=== PATIENT | female | born 1980 | race Caucasian/White ===

== ENCOUNTER 2022-06-01 07:17 | Outpatient (CLI) | payer OTHER, SELFPAY ==
--- NOTE | 2022-06-01 07:15 | CRLHL7_ITS ---
For Patients: As a result of the Century Cures Act, medical imaging exams and procedure reports are released immediately into your electronic medical record. You may view this report before your referring provider. If you have questions, please contact your health care provider. Indication: Question spigelian hernia Technique: Grayscale ultrasound of the abdominal wall performed. Comparison: CT 04/17/2022 Findings: Umbilical hernia again noted measuring 8 millimeters at the base. No evidence of spigelian hernia. Impression: No evidence of spigelian hernia. Dictated by Erich David MD @ 06/01/2022 9:38:47 AM (Electronically Signed)
== END 2022-06-01 07:18 | disposition home or self-care (01) ==
LOC: US 07:18
PROVIDERS: PCP Internal Medicine; Visit Provider Surgery
DX: R10.9 Unspecified abdominal pain (principal)
CPT/HCPCS: 76705

== ENCOUNTER 2022-06-27 15:22 | Outpatient (CLI) | payer OTHER, SELFPAY | END 2022-06-27 15:23 | disposition home or self-care (01) | LOC: LKVREF 15:22 | PROVIDERS: PCP Internal Medicine; Visit Provider Nurse Practitioner Family | DX: M79.674 Pain in right toe(s) (principal); L60.0 Ingrowing nail | CPT/HCPCS: 87070; 87205 ==

== ENCOUNTER 2022-07-11 22:34 | Emergency (ER) | payer OTHER, SELFPAY ==
[2022-07-11 22:43] VITALS: BP 145/78; PULSE 68; RESP 16; TEMP 36.3; O2SAT 98; BMI 51.9
--- NOTE | 2022-07-11 23:02 | CRLHL7_ITS ---
For Patients: As a result of the Century Cures Act, medical imaging exams and procedure reports are released immediately into your electronic medical record. You may view this report before your referring provider. If you have questions, please contact your health care provider. INDICATION: Chest tightness COMPARISON: 07/28/2021 FINDINGS: PA and lateral views of the chest were obtained. The lungs remain clear. No focal or diffuse infiltrates are present. The heart remains normal in size. The mediastinum is normal in appearance. The osseous structures are normal in appearance for the patient`s age. IMPRESSION: Normal chest two views. Dictated by Reagan Moerno MD @ 07/11/2022 11:35:19 PM (Electronically Signed)
[2022-07-11 23:23] LABS: Basophils Absolute Auto 0.02 K/uL (0.00-0.30); Basophils Percent Auto 0.3 % (0.0-3.0); Eosinophils Absolute Auto 0.11 K/uL (0.00-0.50); Eosinophils Percent Auto 1.4 % (0.0-7.0); Hematocrit 34.6 % (33.0-51.0); Hemoglobin* 10.8 gm/dL (12.0-16.0); Immature Granulocytes Abs Auto 0.02 K/uL (0.00-0.30); Lymphocytes Absolute Auto 2.07 K/uL (0.90-2.90); Lymphocytes Percent Auto 26.5 % (20-44); Mean Corpuscular HGB Conc 31 gm/dL (32-36); Mean Corpuscular Hemoglobin 28 pg (26-34); Mean Corpuscular Volume 88 fL (80-100); Monocytes Percent Auto 4.3 % (0.0-11.0); Neutrophils Absolute Auto 5.26 K/uL (1.7-7.0); Neutrophils Percent Auto 67.2 % (42.0-72.0); Platelet Count* 379 K/uL (140-440); RDW Coefficient of Variation % 14.1 % (11.5-15.5); Red Blood Count 3.93 m/uL (4.00-5.20); White Blood Count* 7.82 K/uL (4.50-11.00)
[2022-07-11] MEDS: GI COCKTAIL (VISC LIDO/ANTACID) 30 ML PO (23:24)
[2022-07-11] MEDS: PANTOPRAZOLE SODIUM 40 MG INJ IVP (23:24)
[2022-07-11] MEDS: 0.9 % SODIUM CHLORIDE 1000 ml 1,000 ML IV (23:24)
[2022-07-11 23:29] LABS: Chloride* 105 mmol/L (96-114)
[2022-07-11 23:30] LABS: Potassium* 3.9 mmol/L (3.6-5.1); Sodium* 139 mmol/L (135-149)
--- NOTE | 2022-07-11 23:30 | ED_ITS ---
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 There is no radiation of the discomfort to her neck back or shoulders, she does not feel an acid taste in the back of her throat, she denies any abdominal pain, but says that the ibuprofen she took did not help this. She denies any nausea vomiting diaphoresis, there is no exertional nature to her discomfort, denies any coughing wheezing pleuritic pain, leg swelling, edema, past history of either cardiac issues or DVT pulmonary emboli. Describes her pain is approximately at its least 3/10, maximal at 6/10 Risk Factors Coronary artery disease risk factors: none Thoracic aortic dissection risk factors: none Related Data On Oral Contraceptives: No Home Medications Medication Instructions Recorded Confirmed clobetasol 0.05 % topical ointment 1 topical BID 05/09/22 05/09/22 multivitamin with minerals 1 tab PO ONCE 05/09/22 06/27/22 (Multiple Vitamin-Minerals tablet) tacrolimus 0.03 % topical ointment 1 topical BID 05/09/22 05/09/22 Previous Rx's Medication Instructions Recorded cephalexin 750 mg capsule 750 mg PO BID #20 caps 06/27/22 fluconazole 200 mg tablet 200 mg PO Q72H #2 tabs 06/27/22 (Diflucan) Allergies Allergy/AdvReac Type Severity Reaction Status Date / Time Erythromycin Allergy Intermediate Hives Uncoded 05/09/22 10:23 Review of Systems Status of ROS Reports: 10 or more systems reviewed and unremarkable except as noted in History and below [facility] Medical History At risk for infection History of trigeminal neuralgia (07/28/10) Ingrown toenail Toe pain Surgical History History of foot surgery (07/28/10) History of hand surgery (07/28/10) History of laparoscopic cholecystectomy Social History Smoking Status: Never smoker How often do you have a drink containing alcohol: never How often do you have six or more drinks on one occasion: Never AUDIT-C Alcohol total score: 0 Non-prescribed substance use: denies use Exam Const Vital Signs, click to edit/add: Vital Signs - 24 hr 07/11/22 22:43 Temperature 97.3 F L Pulse Rate [Right Pulse Oximeter] 68 Respiratory Rate 16 Blood Pressure [Right Upper Arm] 145/78 H Pulse Oximetry 98 Oxygen Delivery Method Room Air Documenting provider has reviewed patient's vital signs: yes Common normals: no apparent distress, oriented x3, no limitations, healthy appearing, alert and well nourished Nutritional appearance: overweight [facility] Common normals: normocephalic, head/scalp atraumatic, hearing grossly normal bilaterally, external ears normal, EAC's normal, TM's normal bilaterally, external nose normal, nasal mucous membranes and turbinates normal, moist oral mucous membranes, oropharynx normal, dentition normal and gingiva normal Head and scalp: normal to inspection, normocephalic and atraumatic Nose: external nose normal and nasal mucous membranes and turbinates normal External ear: external ears normal External auditory canal: EAC's normal Tympanic membrane: TM's normal bilaterally Mouth: oral and palatal mucosa normal, lip normal and tongue normal Throat: posterior oropharynx normal, tonsils normal and uvula midline Eye Common normals: PERRL, EOMs intact bilaterally, conjunctivae normal, no scleral icterus, no papilledema, normal visual parker by confrontation and fundi normal bilaterally Conjunctiva: conjunctiva(e) normal Pupil: PERRL Direct Ophthalmoscopy: no papilledema and fundi normal bilaterally Neck & C-Spine Common normals: full ROM, no lymphadenopathy, supple, no meningeal signs, no JVD, thyroid normal and no carotid bruits Thyroid: thyroid normal Lymph Lymphatic: no lymphadenopathy noted Chest Common normals: inspection of chest normal and palpation of chest normal Resp Common normals: normal respiratory effort, no retractions, no use of accessory muscles, clear to auscultation bilaterally and percussion normal Auscultation: clear to auscultation bilaterally Percussion: percussion normal Cardio Common normals: no JVD, regular rate, regular rhythm, S1 normal heart sound, S2 normal heart sound, no gallops, no clicks, no murmurs, no rub and peripheral pulses 2+ throughout Rate: regular rate Rhythm: regular rhythm Heart sounds: S1 normal and S2 normal Peripheral pulses: pulses 2+ throughout GI Common normals: Normal to inspection, nondistended, normoactive bowel sounds present, soft to palpation, non-tender, no hepatosplenomegaly, no masses and no bruits Palpation: soft and no hepatosplenomegaly Common normals: no CVA tenderness Bladder/kidney exam: no CVA tenderness Back & Pelvis Common normals: no CVA tenderness, thoracic and lumbar spine normal to inspection, no thoracic nor lumbar tenderness and thoraco-lumbar ROM normal Extremity Common normals: normal to inspection, normal capillary refill, no joint enlargement, no clubbing, cyanosis or edema, no calf tenderness and no pedal edema Neuro Common normals: oriented x3 Sensorium/orientation: alert Meningeal signs: no meningeal signs Skin Common normals: no rashes or lesions noted, no wounds, skin turgor normal, no jaundice, no petechiae and no mottling General skin exam: no rashes or lesions noted and turgor normal Course Course Hospital Course: I reviewed with the patient the results of her testing which showed normal troponins normal D-dimer, chest x-ray is normal EKG was normal I do feel that this is more likely related to reflux, 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 Return here if increasing chest pain shortness of breath or atypical features which I discussed with her. Vital Signs Vital signs: Initial Vital Signs Temperature 97.3 F L 07/11/22 22:43 Temperature Source Temporal Artery Scan 07/11/22 22:43 Pulse Rate 68 07/11/22 22:43 Respiratory Rate 16 07/11/22 22:43 Blood Pressure 145/78 H 07/11/22 22:43 Blood Pressure Mean 100 07/11/22 22:43 Blood Pressure Position Sitting 07/11/22 22:43 Pulse Oximetry 98 07/11/22 22:43 Oxygen Delivery Method 07/11/22 22:43 Vital Signs Temperature 97.3 F L 07/11/22 22:43 Pulse Rate 68 07/11/22 22:43 Respiratory Rate 16 07/11/22 22:43 Blood Pressure 145/78 H 07/11/22 22:43 Pulse Oximetry 98 07/11/22 22:43 Oxygen Delivery Method 07/11/22 22:43 Temperature 97.3 F L 07/11/22 22:43 Pulse Rate 68 07/11/22 22:43 Respiratory Rate 16 07/11/22 22:43 Blood Pressure 145/78 H 07/11/22 22:43 Pulse Oximetry 98 07/11/22 22:43 Oxygen Delivery Method 07/11/22 22:43 MDM - Chest Pain MDM Narrative Medical decision making narrative: During the evaluation of this patient I considered multiple differential diagnosis is. The life-threatening differential diagnosis include coronary di sease/CT, pulmonary embolism, pneumothorax, pneumonia, and aortic dissection. Other differential diagnosis included but were not limited to pericarditis, myocarditis, chest wall pain, GERD, esophageal rupture, rib fracture contusion, pleurisy, as well as other etiologies. She does drink a lot a caffeine, and I think there is a likely component of GE reflux,. We will go do the workup for chest pain, but I will give her Protonix and also GI cocktail. Medical Records Data Attestation: I reviewed the patient's medical records. Lab Data Attestation: I reviewed the patient's lab results. Labs: Lab Results 07/11/22 07/11/22 07/11/22 Range/Units 23:00 23:00 23:00 WBC 7.82 (4.50-11.00) K/uL RBC 3.93 L (4.00-5.20) m/uL Hgb 10.8 L (12.0-16.0) gm/dL Hct 34.6 (33.0-51.0) % MCV 88 (80-100) fL MCH 28 (26-34) pg MCHC 31 L (32-36) gm/dL RDW Coeff of Erwin 14.1 (11.5-15.5) % Plt Count 379 (140-440) K/uL Neut % (Auto) 67.2 (42.0-72.0) % Lymph % (Auto) 26.5 (20-44) % Vilas % (Auto) 4.3 (0.0-11.0) % Eos % (Auto) 1.4 (0.0-7.0) % Baso % (Auto) 0.3 (0.0-3.0) % Neut # (Auto) 5.26 (1.7-7.0) K/uL Lymph # (Auto) 2.07 (0.90-2.90) K/uL Vilas # (Auto) 0.30 (0.00-0.90) K/UL Eos # (Auto) 0.11 (0.00-0.50) K/uL Baso # (Auto) 0.02 (0.00-0.30) K/uL Abs Immat Gran (auto) 0.02 (0.00-0.30) K/uL D-Dimer Quant (PE/DVT) 0.32 (0.00-0.50) ug/ml Sodium 139 (135-149) mmol/L Potassium 3.9 (3.6-5.1) mmol/L Chloride 105 (96-114) mmol/L Carbon Dioxide 26 (20-32) mmol/L BUN 11 (5-24) mg/dL Creatinine 0.7 (0.5-1.5) mg/dL Estimated Creat Clear 101.01 Estimated GFR 113 ml/min Glucose 96 (60-115) mg/dL Calcium 8.4 (8.4-10.6) mg/dL SARS-CoV-2 (PCR) (Negative) Influenza Type A (PCR) (Negative) Influenza Type B (PCR) (Negative) RSV (PCR) (Negative) POC Troponin I (0.01-0.04) ng/ml 07/11/22 07/11/22 Range/Units 23:00 23:03 WBC (4.50-11.00) K/uL RBC (4.00-5.20) m/uL Hgb (12.0-16.0) gm/dL Hct (33.0-51.0) % MCV (80-100) fL MCH (26-34) pg MCHC (32-36) gm/dL RDW Coeff of Erwin (11.5-15.5) % Plt Count (140-440) K/uL Neut % (Auto) (42.0-72.0) % Lymph % (Auto) (20-44) % Vilas % (Auto) (0.0-11.0) % Eos % (Auto) (0.0-7.0) % Baso % (Auto) (0.0-3.0) % Neut # (Auto) (1.7-7.0) K/uL Lymph # (Auto) (0.90-2.90) K/uL Vilas # (Auto) (0.00-0.90) K/UL Eos # (Auto) (0.00-0.50) K/uL Baso # (Auto) (0.00-0.30) K/uL Abs Immat Gran (auto) (0.00-0.30) K/uL D-Dimer Quant (PE/DVT) (0.00-0.50) ug/ml Sodium (135-149) mmol/L Potassium (3.6-5.1) mmol/L Chloride (96-114) mmol/L Carbon Dioxide (20-32) mmol/L BUN (5-24) mg/dL Creatinine (0.5-1.5) mg/dL Estimated Creat Clear Estimated GFR ml/min Glucose (60-115) mg/dL Calcium (8.4-10.6) mg/dL SARS-CoV-2 (PCR) Negative SARS-CoV-2 (Negative) Influenza Type A (PCR) Negative PCR FLU A (Negative) Influenza Type B (PCR) Negative PCR FLU B (Negative) RSV (PCR) Negative PCR RSV (Negative) POC Troponin I 0.00 L (0.01-0.04) ng/ml Imaging Data Chest x-ray: Attestation: I have reviewed the pertinent imaging results. My impression: Negative chest x-ray Radiologist's impression: Patient: CLAUDIA URBINAMGREN Facility:?[facility] Patient ID:?[id number] Site Patient ID:?[id number]. Site :?[id number] Study:?XRay Chest 2V-07/11/2022 11:27:53 PM Ordering Physician:David Albert Final Report: INDICATION: Chest tightness COMPARISON: 07/28/2021 FINDINGS: PA and lateral views of the chest were obtained. The lungs remain clear. No focal or diffuse infiltrates are present. The heart remains normal in size. The mediastinum is normal in appearance. The osseous structures are normal in appearance for the patient`s age. IMPRESSION: Normal chest two views. Dictated by Reagan Moreno MD @ 07/11/2022 11:35:19 PM (Electronic Signature) ECG Data Attestation: I personally reviewed and interpreted this ECG as follows: ECG interpretation date: 07/11/22 Prior ECG tracings: available for review Interpretation: EKG shows normal sinus rhythm, no acute ST wave changes, ventricular rate of 79, QRS QT [place] intervals are all normal. No change from previous EKG seen in her chart. Discharge Plan Discharge Clinical Impression: Acid reflux disease, Chest pain Patient Disposition: Home, Self-Care Condition: Stable Instructions: Chest Pain (ED), GERD (Gastroesophageal Reflux Disease) (ED), Noncardiac Chest Pain (ED) Additional Instructions: Home, rest, use of omeprazole 20 mg p.o. daily, I find the best deal on this as it is [id number] is at [employer] or [employer]. Please take this for at least 1 month, takes approximately 5-7 days to start working. You can use some Pepcid in the interim, to help this this is b.i.d. dosing. Stomach coaters such as Gaviscon or also helpful. This continues to be a problem then follow-up with her primary care physician as they may suggest endoscopy to look in this. Return here if her chest pain changes in her having symptoms of shortness of breath with exertion, leg swelling, coughing up blood or passing out. Prescriptions: No Action Multiple Vitamin-Minerals Tablet 1 tab PO ONCE clobetasol 0.05 % ointment 1 topical BID Rx Instructions: APPLY SPARINGLY TO AFFECTED AREA TWICE DAILY ON SATURDAYS AND SUNDAYS NEEDED tacrolimus 0.03 % ointment 1 topical BID Rx Instructions: Apply topically to affected area twice daily Saturday theu Saturday. cephalexin 750 mg capsule 750 mg PO BID Qty: 20 0RF fluconazole [Diflucan] 200 mg tablet 200 mg PO Q72H Qty: 2 0RF Follow Up/Referrals: Akilah Khanna MD [Primary Care Provider] - Stand Alone Forms: [employer] Info Instructions
[2022-07-11 23:32] LABS: Carbon Dioxide* 26 mmol/L (20-32); Creatinine* 0.7 mg/dL (0.5-1.5); Est. Creatinine Clearance* 101.01; Estimated Glomerular Filt Rate 113 ml/min
[2022-07-11 23:33] LABS: Blood Urea Nitrogen* 11 mg/dL (5-24); Calcium* 8.4 mg/dL (8.4-10.6); Glucose* 96 mg/dL (60-115)
[2022-07-11 23:39] LABS: D Dimer Quantitative* 0.32 ug/ml (0.00-0.50); Slide Review Reflex No
[2022-07-11 23:55] LABS: PCR FLU A Negative PCR FLU A (Negative); PCR FLU B Negative PCR FLU B (Negative); PCR RSV Negative PCR RSV (Negative)
[2022-07-12] VITALS: BP 143/92; PULSE 78; RESP 16; TEMP 36.3; O2SAT 98
[2022-07-12 00:02] LABS: SARS PCR* Negative SARS-CoV-2 (Negative)
[2022-07-12 01:08] VITALS: BP 143/88; PULSE 75; RESP 16; TEMP 36.3; O2SAT 98
[2022-07-12 01:09] VITALS: BP 143/88; PULSE 75; RESP 16; TEMP 36.3
== END 2022-07-12 01:09 | disposition home or self-care (01) ==
PROVIDERS: Emergency Provider Family Medicine; PCP Internal Medicine
DX: K21.9 Gastro-esophageal reflux disease without esophagitis (principal); R07.9 Chest pain, unspecified
CPT/HCPCS: 36415; 71046; 80048; 84484; 85025; 85379; 87502; 87634; 87635; 93005; 96361; 96374; 99284; A9270; C9113; J7030

== ENCOUNTER 2022-08-18 21:41 | Emergency (ER) | payer OTHER, SELFPAY ==
[2022-08-18 21:50] VITALS: BP 161/108; PULSE 89; RESP 18; TEMP 36.6; O2SAT 99; BMI 50.0
[2022-08-18 21:52] VITALS: BP 161/108; PULSE 89; RESP 18; TEMP 36.6; O2SAT 99; BMI 50.0
--- NOTE | 2022-08-18 22:05 | ED.GENADULT ---
HPI - General Adult General Chief complaint: Arrhythmia/Palpitations Stated complaint: irregular heartbeat Time Seen by Provider: 08/18/22 21:46 Source: patient Mode of arrival: ambulatory Limitations: no limitations History of Present Illness HPI narrative: 41-year-old female coming in today concerned about palpitations and elevated blood pressures. She states that once every 30 seconds for the last 2 hours she feels her heart flutter. Does not cause her to feel short of breath. She denies any chest pain. She then checked her blood pressure was 185 systolic and she became very concerned. She does have high blood pressure. She recently started treatment with chlorthalidone half tablet daily now she is up to 25 mg daily and she feels like her numbers are not any better. She states also for the last couple of weeks her face begins to flush to the point where it hurts. She denies any fast heartbeat, no headaches. When she has been struggling with GERD and so stopped using all caffeinated beverages. She does have anxiety and appears to be under quite a bit of stress trying to control her blood pressure. Related Data Home Medications Medication Instructions Recorded Confirmed multivitamin with minerals 1 tab PO ONCE 05/09/22 08/18/22 (Multiple Vitamin-Minerals tablet) Previous Rx's Medication Instructions Recorded chlorthalidone 25 mg tablet 25 mg PO QDAY #90 tabs 08/08/22 pantoprazole 20 mg tablet,delayed 20 mg PO QDAY #90 tabs 08/14/22 release metoprolol succinate 25 mg 12.5 mg PO DAILY #15 tabs 08/18/22 tablet,extended release 24 hr Allergies Allergy/AdvReac Type Severity Reaction Status Date / Time erythromycin base Allergy Intermediate Hives Verified 08/18/22 21:55 Review of Systems Status of ROS: Reports: 10 or more systems reviewed and unremarkable except as noted in History and below [facility] Medical History Anxiety At risk for infection Basal cell carcinoma of skin GERD (gastroesophageal reflux disease) History of trigeminal neuralgia (07/28/10) HTN (hypertension) Ingrown toenail Menorrhagia Migraine headache Morbid obesity Pelvic pain Toe pain Surgical History History of foot surgery (07/28/10) History of hand surgery (07/28/10) History of laparoscopic cholecystectomy Social History Smoking Status: Never smoker How often do you have a drink containing alcohol: never How often do you have six or more drinks on one occasion: Never AUDIT-C Alcohol total score: 0 Non-prescribed substance use: denies use Exam Narrative: Exam Narrative: Obese, well-developed patient in no acute distress but does appear quite anxious. Alert and oriented. Answers questions appropriately. Patient speaks in full sentences without needing to catch her breath. She is not in any respiratory distress. HEENT: Normocephalic atraumatic. Pupils are equally round reactive to light. Extraocular muscles are intact. Conjunctivae are moist without any icterus noted. Moist mucous membranes. Neck is soft without any lymphadenopathy or thyromegaly. Cardiovascular: Heart is regular rate and rhythm S1 and S2 are present without any murmurs. Lungs: Clear to auscultation bilaterally no wheezes rhonchi or rales are appreciated. Patient takes deep breaths without any discomfort. Abdomen: Soft and nontender nondistended with normal bowel sounds. Extremities: Bilateral lower extremities are without edema. Normal DP and PT pulses. Skin: Well perfused. Cheeks are flushed bilaterally. Const: Vital Signs, click to edit/add: Vital Signs - 24 hr 08/18/22 21:52 08/18/22 21:50 Temperature 97.9 F 97.9 F Pulse Rate [Right Pulse Oximeter] 89 89 Respiratory Rate 18 18 Blood Pressure [Le ft Upper Arm] 161/108 H 161/108 H Pulse Oximetry 99 99 Oxygen Delivery Me thod Room Air Room Air Course Course Hospital Course: EKG was done upon arrival which showed normal sinus rhythm with a pulse of 94. Patient was placed on the heart monitor where it appears that about every 30 seconds or so she would have a premature ventricular complex. Her feelings of fluttering in her chest correlated exactly when she threw PVC. Vital Signs Vital signs: Initial Vital Signs Temperature 97.9 F 08/18/22 21:50 Temperature Source Temporal Artery Scan 08/18/22 21:50 Pulse Rate 89 08/18/22 21:50 Pulse Rhythm 08/18/22 21:50 Pulse Strength 3+ Normal 08/18/22 21:50 Respiratory Rate 18 08/18/22 21:50 Respiratory Effort Spontaneous 10/08/22 21:50 Respiratory Depth Normal 08/18/22 21:50 Respiratory Pattern 08/18/22 21:50 Blood Pressure 161/108 H 08/18/22 21:50 Blood Pressure Mean 125 08/18/22 21:50 Blood Pressure Position Sitting 08/18/22 21:50 Pulse Oximetry 99 08/18/22 21:50 Oxygen Delivery Method 08/18/22 21:50 Vital Signs Temperature 97.9 F 08/18/22 21:50 Pulse Rate 89 08/18/22 21:50 Respiratory Rate 18 08/18/22 21:50 Blood Pressure 161/108 H 08/18/22 21:50 Pulse Oximetry 99 08/18/22 21:50 Oxygen Delivery Method 08/18/22 21:50 Temperature 97.9 F 08/18/22 21:52 Pulse Rate 89 08/18/22 21:52 Respiratory Rate 18 08/18/22 21:52 Blood Pressure 161/108 H 08/18/22 21:52 Pulse Oximetry 99 08/18/22 21:52 Oxygen Delivery Method 08/18/22 21:52 Medical Decision Making MDM Narrative Medical decision making narrative: 41-year-old female with PVCs. She is very concerned about this despite me trying my best to reassure her that this is a benign phenomenon. We discussed adding metoprolol to her hypertension regimen to decrease the amount of PVCs but also to see if we can bring down her blood pressure a little bit. We discussed that this is not the best medication for hypertension control but again should help with PVCs. I asked her to follow up with primary care provider to have this discussion patient would like to have this prescription started right away. We also discussed that chlorthalidone can certainly cause side effects of flushing, I asked her to discuss this with her primary care provider to see if they want to start her on something else. Medical Records Medical records reviewed: Yes I reviewed the patient's medical records ECG Data Attestation: I personally reviewed and interpreted this ECG as follows: (Normal sinus rhythm, pulse is 94) Discharge Plan Discharge Clinical Impression: Premature ventricular complex, Hypertension Patient Disposition: Home, Self-Care Condition: Stable Additional Instructions: Okay to start metoprolol as prescribed. Recommend you follow-up with primary care provider early next week to discuss switching chlorthalidone to something else to see if this decreases the amount of flushing you are experiencing. Prescriptions: New metoprolol succinate 25 mg tablet extended release 24 hr 12.5 mg PO DAILY Qty: 15 0RF No Action Multiple Vitamin-Minerals Tablet 1 tab PO ONCE chlorthalidone 25 mg tablet 25 mg PO QDAY Qty: 90 3RF pantoprazole 20 mg tablet,delayed release (DR/EC) 20 mg PO QDAY Qty: 90 1RF Follow Up/Referrals: Akilah Khanna MD [Primary Care Provider] - Stand Alone Forms: [employer] Info Instructions
[2022-08-18 22:20] VITALS: BP 154/100; PULSE 84; RESP 18; TEMP 36.6; O2SAT 98
[2022-08-18 22:22] VITALS: BP 154/100; PULSE 84; RESP 18; TEMP 36.6
--- OUTSIDE RECORDS SUMMARY | 2022-08-18 22:23 | XMS_ITS | Clinical Summary ---
:1980 Author Organization [facility] [place] [address] Care Team Providers Name Role Phone Pcp, No Primary Care Provider Unavailable Allergies Active Allergy Reactions Severity Noted Date Comments Erythromycin Hives 12/16/2007 Medications Medication Sig Dispensed Refills Start Date End Date Status LORazepam (ATIVAN) 0.5 Take 1 Tablet (0.5 30 Tablet 0 07/24/20 21 Active mg tabIndications: mg) by mouth every Anxiety state 6 hours if needed for Anxiety. 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 Immunizations Name Administration Dates Next Due Human Papilloma Virus Vaccine 09/16/2009, 05/10/2009, 2008 Influenza A (H1N1), Live Intranasal 08/31/2009 Influenza Intradermal PF 18-64 yrs 08/13/2016 Influenza, IIV3 (Age 6-35 mos) 07/31/2013, 08/06/2012, 08/13, 08/16/2010 Influenza, IIV3 (Age >=3 years) 09/08/2014 Influenza, IIV4 08/21/2017, 08/17/2015 Tdap 07/17/2013, 03/04/2009 Social History Tobacco Use Types Packs/Day Years Used Date Never Smoker Smokeless Tobacco: Never Used Tobacco Cessation: Counseling Given: Yes Alcohol Use Standard Drinks/Week Comments No 0 (1 standard drink = 0.6 oz pure alcoho l) Sex Assigned at Date Recorded Not on file Obstetrics History Para Term AB IAB SAB Ectopic Multiple Living Live Births 1 1 1 Date Outcome GA Total Labor/2nd/3rd Weight Sex Delivery Anes PTL Ai A 1 A5 Name Clin Labor Term Last Filed Vital Signs Vital Sign Reading Time Taken Comments Blood Pressure 139/83 12/25/2018 5:28 PM PLANT SENIOR MANAGER Pulse 84 12/25/2018 5:28 PM PLANT SENIOR MANAGER Temperature 36.6 ??C (97.9 ??F) 12/25/2018 5:28 PM PLANT SENIOR MANAGER Respiratory Rate 12 05/25/2017 11:53 AM CDT Oxygen Saturation 95% 12/25/2018 5:28 PM PLANT SENIOR MANAGER Inhaled Oxygen Concentration - - Weight 139.7 kg (308 lb) 12/25/2018 5:28 PM PLANT SENIOR MANAGER Height 169.6 cm (5' 6.77) 12/25/2018 5:28 PM PLANT SENIOR MANAGER Body Mass Index 48.57 12/25/2018 5:28 PM PLANT SENIOR MANAGER Plan of Treatment Health Maintenance Due Date Last Done Comments Hepatitis C screening for age 1110/10/2000 18-79 BMI (ht and wt on same day) for 12/25/2019 12/25/2018, 11/2018, age 18+ 05/20/2018, Additional history exists COVID-19 vaccine series (3 - 08/07/2021 03/07/2021, 021 Booster for Pfizer series) Influenza for age 9-49 07/12/2022 08/21/2017, 08/17/2015, 09/08/2014, Additional history exists Depression screening for age 12+ 07/24/2022 07/24/2021, 11/2018, 12/12/2018 Tetanus booster 07/17/2023 07/17/2013, 07/17/2013 (Completed outside of [facility]), 03/04/2009 Pap test for age 21-65 09/18/2024 09/18/2021, 09/18/2021, 12/08/2013, Additional history exists Tdap Completed 07/17/2013, 07/17/2013 (Completed outside of [facility]), 03/04/2009 Results Not on filefrom Last 3 Months Advance Directives Documents on File Type Date Recorded Patient Freelance Interpreter/Translator Explanati on Healthcare Directive 03/20/2017 4:35 PM 03/14/2017 Care Teams Applications Analyst Relationship Specialty Start Date End Date Pcp, No PCP - General 12/12/18 .
== END 2022-08-18 22:50 | disposition home or self-care (01) ==
LOC: ED 22:21
PROVIDERS: Emergency Provider Family Medicine; PCP Internal Medicine
DX: I49.3 Ventricular premature depolarization (principal); I10 Essential (primary) hypertension
CPT/HCPCS: 93005; 99283; 99284

== ENCOUNTER 2022-09-11 23:50 | Emergency (ER) | payer OTHER, SELFPAY ==
[2022-09-12] VITALS: BP 156/101
[2022-09-12 00:01] VITALS: BP 156/101; PULSE 68; RESP 20; TEMP 36.3; O2SAT 97; BMI 49.6
--- NOTE | 2022-09-12 00:27 | ED.GENADULT ---
HPI - General Adult General Time Seen by Provider: 00:28 Date Seen: 09/12/22 Chief complaint: Chest Pain Stated complaint: Lft side chest pain, irregular heartbeat Time Seen by Provider: 09/12/22 00:24 Source: patient, RN notes reviewed and old records reviewed Mode of arrival: ambulatory Limitations: no limitations History of Present Illness HPI narrative: Patient is a 41-year-old female coming into the ER with episodic left-sided chest pain starting at 2:00 a.m. today. She has known underlying PVCs and has been feeling those as well. She carries a diagnosis of hypertension. She was in the ER earlier in August as well as July 11. I have reviewed her visit from July 11 as well as August 18. She had PVCs diagnosed on August 18. Her visit at the end of June was thought to be due to reflux symptoms. With her increased omeprazole she states her symptoms are well controlled. Her reflux symptoms are different than what she fell today. She feels a 18 type discomfort that is lasting seconds. It is independent of the PVCs. She has not been sick with any cough or cold symptoms. She does note since she was switched from chlorthalidone to metoprolol that she has a little bit of ankle edema, it is just trying to elevate her legs more and be more ambulatory. The pain is coming recurrent least since 2:00 a.m., last seconds when it is there. She has been attempting to treat her hypertension. She notes that her blood pressures at home have still been registering 150s or so systolic. She was placed on metoprolol XL 25 mg, hoping to help control blood pressure but also to help control the PVCs. She has no prior cardiac history. Her mom has had an ablation for SVT. She had a grandmother that of a sudden cardiac . Related Data Home Medications Medication Instructions Recorded Confirmed multivitamin with minerals 1 tab PO ONCE 05/09/22 08/22/22 (Multiple Vitamin-Minerals tablet) Previous Rx's Medication Instructions Recorded pantoprazole 20 mg tablet,delayed 20 mg PO QDAY #90 tabs 08/14/22 release metoprolol succinate 25 mg 25 mg PO QDAY #30 tabs 08/22/22 tablet,extended release 24 hr Allergies Allergy/AdvReac Type Severity Reaction Status Date / Time erythromycin base Allergy Intermediate Hives Verified 08/22/22 10:10 Review of Systems Status of ROS: Reports: 10 or more systems reviewed and unremarkable except as noted in History and below [facility] Medical History Anxiety At risk for infection Basal cell carcinoma of skin GERD (gastroesophageal reflux disease) History of trigeminal neuralgia (07/28/10) HTN (hypertension) Ingrown toenail Menorrhagia Migraine headache Morbid obesity Pelvic pain Toe pain Surgical History History of foot surgery (07/28/10) History of hand surgery (07/28/10) History of laparoscopic cholecystectomy Social History Smoking Status: Never smoker How often do you have a drink containing alcohol: never How often do you have six or more drinks on one occasion: Never AUDIT-C Alcohol total score: 0 Non-prescribed substance use: denies use service: No Exam Const: Vital Signs, click to edit/add: Vital Signs - 24 hr 09/12/22 00:01 09/12/22 00:34 09/12/22 00:00 Temperature 97.3 F L Pulse Rate [Left P ulse Oximeter] 68 Respiratory Rate 20 Blood Pressure [Le ft Upper Arm] 156/101 H 156/101 H Pulse Oximetry 97 96 Oxygen Delivery Me thod Room Air 09/12/22 00:55 09/12/22 01:05 09/12/22 01:20 Temperature Pulse Rate [Left P ulse Oximeter] 70 73 71 Respiratory Rate Blood Pressure [Le ft Upper Arm] 117/97 H 125/85 140/87 H Pulse Oximetry 97 98 Oxygen Delivery Me thod Room Air Room Air Documenting provider has reviewed patient's vital signs: yes Common normals: no apparent distress, oriented x3, no limitations, healthy appearing, alert and well nourished General appearance: cooperative, comfortable and well kempt Nutritional appearance: overweight HENMT: Common normals: normocephalic, head/scalp atraumatic, hearing grossly normal bilaterally and external ears normal Head and scalp: normocephalic and atraumatic External ear: external ears normal Eye: Common normals: PERRL, EOMs intact bilaterally, conjunctivae normal and no scleral icterus Conjunctiva: conjunctiva(e) normal Pupil: PERRL Neck & C-Spine: Common normals: full ROM, no lymphadenopathy, supple, no meningeal signs, no JVD and thyroid normal Thyroid: thyroid normal Chest: Common normals: inspection of chest normal and palpation of chest normal Resp: Common normals: normal respiratory effort, no retractions, no use of accessory muscles and clear to auscultation bilaterally Effort & inspection: able to speak in complete sentences Auscultation: clear to auscultation bilaterally Cardio: Common normals: no JVD, regular rate, regular rhythm, S1 normal heart sound, S2 normal heart sound, no gallops and no clicks Rate: regular rate Rhythm: regular rhythm Heart sounds: S1 normal and S2 normal GI: Common normals: Normal to inspection, nondistended, normoactive bowel sounds present, soft to palpation, non-tender, no hepatosplenomegaly and no masses Palpation: soft and no hepatosplenomegaly Extremity: Common normals: normal to inspection, full ROM, no joint enlargement, no clubbing, cyanosis or edema and no calf tenderness Other: Very minimal symmetric lower extremity edema Neuro: Common normals: oriented x3, CN's II-XII intact bilaterally, moves all extremities, no focal motor deficits, no sensory deficits noted and gait normal Sensorium/orientation: alert Meningeal signs: no meningeal signs Psych: Appearance: well kempt Course Course Hospital Course: She will be on cardiac monitoring, pulse oximetry. Will get a portable chest x-ray. Her initial EKG is looking reassuring. Will get a complement of labs. I will give her metoprolol 25 mg orally and see if she tolerates this. Have reviewed with her that 25 mg metoprolol XL is really a minimal dose. She will likely need more for blood pressure control. She understands that if her D-dimer is elevated, that will be proceeding with chest CT PE protocol. Cardiothoracic etiologies, venous thromboembolism, possibly even atypical reflux are all potential etiologies. Right now she is hemodynamically stable and will plan on observing her. I do not have a high threshold thinking that this is acute ischemic disease based on her presentation. If her troponin were to come back elevated we will proceed as such. Reevaluation(s) Reevaluation #1: Patient's hemoglobin came back at 10.6, was 10.8 at the end of June. She was unaware that she was anemic. Upon discussion of this with her, her periods are quite heavy. Reviewed that she could talk about menstrual cycle control at followup with her primary care provider or get a referral to OB Gyne. Taking iron or increasing iron rich foods in her diet would be helpful as well. Reviewed with her that her troponin is normal. Time: 01:24 Vital Signs Vital signs: Initial Vital Signs Blood Pressure 156/101 H 09/12/22 00:00 Blood Pressure Mean 119 09/12/22 00:00 Blood Pressure Position Sitting 09/12/22 00:00 Vital Signs Blood Pressure 156/101 H 09/12/22 00:00 Temperature 97.3 F L 09/12/22 00:01 Pulse Rate 71 09/12/22 01:20 Respiratory Rate 20 09/12/22 00:01 Blood Pressure 140/87 H 09/12/22 01:20 Pulse Oximetry 98 09/12/22 01:20 Oxygen Delivery Method 09/12/22 01:20 Medical Decision Making Lab Data Lab results reviewed: Yes I reviewed the patient's lab results Labs: Lab Results 09/12/22 09/12/22 09/12/22 Range/Units 00:35 00:40 00:40 WBC 9.47 (4.50-11.00) K/uL RBC 3.85 L (4.00-5.20) m/uL Hgb 10.6 L (12.0-16.0) gm/dL Hct 33.7 (33.0-51.0) % MCV 88 (80-100) fL MCH 28 (26-34) pg MCHC 32 (32-36) gm/dL RDW Coeff of Erwin 14.1 (11.5-15.5) % Plt Count 351 (140-440) K/uL Neut % (Auto) 67.0 (42.0-72.0) % Lymph % (Auto) 27.6 (20-44) % Elbert % (Auto) 3.9 (0.0-11.0) % Eos % (Auto) 1.1 (0.0-7.0) % Baso % (Auto) 0.2 (0.0-3.0) % Neut # (Auto) 6.35 (1.7-7.0) K/uL Lymph # (Auto) 2.61 (0.90-2.90) K/uL Elbert # (Auto) 0.40 (0.00-0.90) K/UL Eos # (Auto) 0.10 (0.00-0.50) K/uL Baso # (Auto) 0.02 (0.00-0.30) K/uL Abs Immat Gran (auto) 0.02 (0.00-0.30) K/uL ESR 16 (2-20) mm/hr D-Dimer Quant (PE/DVT) (0.00-0.50) ug/ml Sodium (135-149) mmol/L Potassium (3.6-5.1) mmol/L Chloride (96-114) mmol/L Carbon Dioxide (20-32) mmol/L BUN (5-24) mg/dL Creatinine (0.5-1.5) mg/dL Estimated Creat Clear Estimated GFR ml/min Glucose (60-115) mg/dL Calcium (8.4-10.6) mg/dL Magnesium (1.5-2.6) mg/dL Total Bilirubin (0.1-1.5) mg/dL AST (12-35) U/L ALT (4-35) U/L Alkaline Phosphatase (40-150) U/L C-Reactive Protein (0.5-1.0) mg/dL NT-Pro-B Natriuret Pep (0-125) PG/mL Total Protein (6.0-8.3) g/dL Albumin (3.3-5.0) g/dL POC Troponin I 0.00 L (0.01-0.04) ng/ml 09/12/22 09/12/22 09/12/22 Range/Units 00:40 00:40 02:04 WBC (4.50-11.00) K/uL RBC (4.00-5.20) m/uL Hgb (12.0-16.0) gm/dL Hct (33.0-51.0) % MCV (80-100) fL MCH (26-34) pg MCHC (32-36) gm/dL RDW Coeff of Erwin (11.5-15.5) % Plt Count (140-440) K/uL Neut % (Auto) (42.0-72.0) % Lymph % (Auto) (20-44) % Elbert % (Auto) (0.0-11.0) % Eos % (Auto) (0.0-7.0) % Baso % (Auto) (0.0-3.0) % Neut # (Auto) (1.7-7.0) K/uL Lymph # (Auto) (0.90-2.90) K/uL Elbert # (Auto) (0.00-0.90) K/UL Eos # (Auto) (0.00-0.50) K/uL Baso # (Auto) (0.00-0.30) K/uL Abs Immat Gran (auto) (0.00-0.30) K/uL ESR (2-20) mm/hr D-Dimer Quant (PE/DVT) 0.35 (0.00-0.50) ug/ml Sodium 141 (135-149) mmol/L Potassium 4.0 (3.6-5.1) mmol/L Chloride 106 (96-114) mmol/L Carbon Dioxide 26 (20-32) mmol/L BUN 11 (5-24) mg/dL Creatinine 0.6 (0.5-1.5) mg/dL Estimated Creat Clear 117.85 Estimated GFR 117 ml/min Glucose 104 (60-115) mg/dL Calcium 8.5 (8.4-10.6) mg/dL Magnesium 1.9 (1.5-2.6) mg/dL Total Bilirubin 0.2 (0.1-1.5) mg/dL AST 14 (12-35) U/L ALT 16 (4-35) U/L Alkaline Phosphatase 62 (40-150) U/L C-Reactive Protein 0.8 (0.5-1.0) mg/dL NT-Pro-B Natriuret Pep 69 (0-125) PG/mL Total Protein 6.6 (6.0-8.3) g/dL Albumin 4.0 (3.3-5.0) g/dL POC Troponin I 0.00 L (0.01-0.04) ng/ml Imaging Data Chest x-ray: Attestation: I have reviewed the pertinent imaging results. My impression: I see no acute cardiopulmonary pathology on my preliminary read. Radiologist's impression: Patient: CLAUDIA KAPOOR Facility:?[facility] Patient ID:?[id number] Site Patient ID:?[id number]. Site :?[id number] Study:?XRay Chest -09/12/2022 2:03:14 AM Ordering Physician:Derek Carpenter Final Report: Indication: Chest pain Technique: Chest 1 view Comparison: None Findings/Impression: Cardiovascular and mediastinum: Heart size and vasculature are normal in caliber and appearance. Mediastinum is within normal limits. Lungs and pleural space: Lungs are clear. No sign of infiltrate or mass. No sign of pleural effusion. No pneumothorax. Bones and soft tissues: No significant findings. Dictated by Yancy Su MD @ 09/12/2022 2:42:13 AM (Electronic Signature) ECG Data Attestation: I personally reviewed and interpreted this ECG as follows: (Sinus rhythm, 70 beats per minute. QT corrected 425 milliseconds. No acute ischemia.) Prior ECG tracings: available for review (Reviewed her 3 prior EKGs in the system, no significant change.) Interpretation: Repeat EKG at 2:03 a.m. shows sinus rhythm, 72 beats per minute, no acute change. Critical Care Time Critical Care Time Critical Care Time: No Discharge Plan Discharge Clinical Impression: Anemia, Chest pain, Hypertension Patient Disposition: Home, Self-Care Condition: Stable Instructions: Chest Pain (ED), Hypertension (ED), Anemia (ED) Additional Instructions: Need to follow up in clinic with her primary care provider. Need to discuss ongoing management of hypertension, review lifestyle modifications that can be made. Consider stress testing, will leave that for you in your provider to discuss. Need to review the anemia and would 1st and foremost attempt at minimizing blood loss during menstrual flow. Your primary care provider can direct that workup and treatment further. Activity Level: Activity as Tolerated Discharge Diet: Heart Healthy (2 gm sodium, low fat) Prescriptions: No Action Multiple Vitamin-Minerals Tablet 1 tab PO ONCE metoprolol succinate 25 mg tablet extended release 24 hr 25 mg PO QDAY Qty: 30 1RF pantoprazole 20 mg tablet,delayed release (DR/EC) 20 mg PO QDAY Qty: 90 1RF Follow Up/Referrals: Akilah Khanna MD [Primary Care Provider] - Stand Alone Forms: [employer] Info Instructions
[2022-09-12 00:34] VITALS: O2SAT 96
--- NOTE | 2022-09-12 00:34 | CRLHL7_ITS ---
For Patients: As a result of the Century Cures Act, medical imaging exams and procedure reports are released immediately into your electronic medical record. You may view this report before your referring provider. If you have questions, please contact your health care provider. Indication: Chest pain Technique: Chest 1 view Comparison: None Findings/Impression: Cardiovascular and mediastinum: Heart size and vasculature are normal in caliber and appearance. Mediastinum is within normal limits. Lungs and pleural space: Lungs are clear. No sign of infiltrate or mass. No sign of pleural effusion. No pneumothorax. Bones and soft tissues: No significant findings. Dictated by Yancy Su MD @ 09/12/2022 2:42:13 AM (Electronically Signed)
[2022-09-12 00:52] LABS: Basophils Absolute Auto 0.02 K/uL (0.00-0.30); Basophils Percent Auto 0.2 % (0.0-3.0); Eosinophils Percent Auto 1.1 % (0.0-7.0); Hematocrit 33.7 % (33.0-51.0); Hemoglobin* 10.6 gm/dL (12.0-16.0); Immature Granulocytes Abs Auto 0.02 K/uL (0.00-0.30); Lymphocytes Absolute Auto 2.61 K/uL (0.90-2.90); Lymphocytes Percent Auto 27.6 % (20-44); Mean Corpuscular HGB Conc 32 gm/dL (32-36); Mean Corpuscular Hemoglobin 28 pg (26-34); Mean Corpuscular Volume 88 fL (80-100); Monocytes Percent Auto 3.9 % (0.0-11.0); Neutrophils Absolute Auto 6.35 K/uL (1.7-7.0); Platelet Count* 351 K/uL (140-440); RDW Coefficient of Variation % 14.1 % (11.5-15.5); Red Blood Count 3.85 m/uL (4.00-5.20); White Blood Count* 9.47 K/uL (4.50-11.00)
[2022-09-12 00:55] VITALS: BP 117/97; PULSE 70
--- OUTSIDE RECORDS SUMMARY | 2022-09-12 00:56 | XMS_ITS | Clinical Summary ---
:1980 Author Organization [facility] [place] [address] Care Team Providers Name Role Phone Pcp, [...] Comments Blood Pressure 139/83 12/25/2018 5:28 PM TITLE INVESTIGATOR Pulse 84 12/25/2018 5:28 PM TITLE INVESTIGATOR Temperature 36.6 ??C (97.9 ??F) 12/25/2018 5:28 PM TITLE INVESTIGATOR Respiratory Rate 12 05/25/2017 11:53 AM CDT Oxygen Saturation 95% 12/25/2018 5:28 PM TITLE INVESTIGATOR Inhaled Oxygen Concentration - - Weight 139.7 kg (308 lb) 12/25/2018 5:28 PM TITLE INVESTIGATOR Height 169.6 cm (5' 6.77) 12/25/2018 5:28 PM TITLE INVESTIGATOR Body Mass Index 48.57 12/25/2018 5:28 PM TITLE INVESTIGATOR Plan of Treatment Health Maintenance Due Date Last Done Comments Hepatitis C screening for age 1110/10/2000 18-79 BMI (ht and wt on same day) for 12/25/2019 12/25/2018, 11/2018, age 18+ 05/20/2018, Additional history exists COVID-19 vaccine series (3 - 05/02/2021 03/07/2021, 021 Booster for Pfizer series) Influenza for age 9-49 07/12/2022 08/21/2017, 08/17/2015, 09/08/2014, Additional history exists Depression screening for age 12+ 07/24/2022 07/24/2021, 11/2018, 12/12/2018 Tetanus booster 07/17/2023 07/17/2013, 07/17/2013 (Completed outside of [facility]), 03/04/2009 Pap test for age 21-65 09/18/2024 09/18/2021, 09/18/2021, 12/08/2013, Additional history exists Tdap Completed 07/17/2013, 07/17/2013 (Completed outside of [facility]), 03/04/2009 Results Not on filefrom Last 3 Months Advance Directives Documents on File Type Date Recorded Patient Preschool Principal Explanati on Healthcare Directive 03/20/2017 4:35 PM 03/14/2017 Care Teams Small Machine Bindery Operator Relationship Specialty Start Date End Date Pcp, No PCP - General 12/12/18 .
[2022-09-12 01:02] LABS: Slide Review Reflex No
[2022-09-12 01:05] VITALS: BP 125/85; PULSE 73; O2SAT 97
--- NOTE | 2022-09-12 01:05 | ED.NURSE ---
Pt BP rechecked prior to Metoprolol administration. BP now lower at 125/85. MD notified, Metoprolol held at this time.
[2022-09-12 01:08] LABS: Chloride* 106 mmol/L (96-114); Sodium* 141 mmol/L (135-149)
[2022-09-12 01:11] LABS: Creatinine* 0.6 mg/dL (0.5-1.5); D Dimer Quantitative* 0.35 ug/ml (0.00-0.50); Est. Creatinine Clearance* 117.85; Estimated Glomerular Filt Rate 117 ml/min
[2022-09-12 01:12] LABS: Alanine Aminotransferase* 16 U/L (4-35); Alkaline Phosphatase* 62 U/L (40-150); Aspartate Amino Transferase* 14 U/L (12-35); Bilirubin Total* 0.2 mg/dL (0.1-1.5); Blood Urea Nitrogen* 11 mg/dL (5-24); Calcium* 8.5 mg/dL (8.4-10.6); Carbon Dioxide* 26 mmol/L (20-32); Glucose* 104 mg/dL (60-115); Magnesium* 1.9 mg/dL (1.5-2.6); Total Protein* 6.6 g/dL (6.0-8.3)
[2022-09-12 01:14] LABS: C Reactive Protein* 0.8 mg/dL (0.5-1.0)
[2022-09-12 01:20] VITALS: BP 140/87; PULSE 71; O2SAT 98
[2022-09-12 01:21] LABS: NT Pro B Type NatriureticPept* 69 PG/mL (0-125)
--- NOTE | 2022-09-12 01:46 | ED.NURSE ---
Radiology in room for PCXR
[2022-09-12 01:54] LABS: Erythrocyte SedimentationRate* 16 mm/hr (2-20)
== END 2022-09-12 02:52 | disposition home or self-care (01) ==
PROVIDERS: Emergency Provider Family Medicine; PCP Internal Medicine
DX: R07.9 Chest pain, unspecified (principal); D64.9 Anemia, unspecified; I10 Essential (primary) hypertension; I49.3 Ventricular premature depolarization; Z79.899 Other long term (current) drug therapy; Z82.49 Family history of ischemic heart disease and other diseases of the circulatory system
CPT/HCPCS: 36415; 71045; 80053; 83735; 83880; 85025; 85379; 85651; 86140; 93005; 94761; 99284; 99285

== ENCOUNTER 2022-10-03 16:49 | Outpatient (CLI) | payer OTHER, SELFPAY ==
--- OUTSIDE RECORDS SUMMARY | 2022-10-03 16:51 | XMS_ITS | Clinical Summary ---
:1980 Author Organization [facility] [place] [address] Care Team Providers Name Role Phone Pcp, [...] Comments Blood Pressure 139/83 12/25/2018 5:28 PM NEON TECHNICIAN Pulse 84 12/25/2018 5:28 PM NEON TECHNICIAN Temperature 36.6 ??C (97.9 ??F) 12/25/2018 5:28 PM NEON TECHNICIAN Respiratory Rate 12 05/25/2017 11:53 AM CDT Oxygen Saturation 95% 12/25/2018 5:28 PM NEON TECHNICIAN Inhaled Oxygen Concentration - - Weight 139.7 kg (308 lb) 12/25/2018 5:28 PM NEON TECHNICIAN Height 169.6 cm (5' 6.77) 12/25/2018 5:28 PM NEON TECHNICIAN Body Mass Index 48.57 12/25/2018 5:28 PM NEON TECHNICIAN Plan of Treatment Health Maintenance Due Date Last Done Comments HIV for age 15-65 1997 Hepatitis C screening for age 1110/10/2000 18-79 BMI (ht and wt on same day) for 12/25/2019 12/25/2018, 0211/2018, age 18+ 05/20/2018, Additional history exists COVID-19 vaccine series (3 - 05/02/2021 03/07/2021, 021 Booster for Pfizer series) Influenza for age 9-49 07/12/2022 08/21/2017, 08/17/2015, 09/08/2014, Additional history exists Depression screening for age 12+ 07/24/2022 07/24/2021, 11/2018, 12/12/2018 Tetanus booster 07/17/2023 07/17/2013, 07/17/2013 (Completed outside of [facility]), 03/04/2009 Pap test for age 21-65 09/18/2024 09/18/2021, 09/18/2021, 12/08/2013, Additional history exists Tdap Completed 07/17/2013, 07/17/2013 (Completed outside of [facility]), 03/04/2009 Results Not on filefrom Last 3 Months Advance Directives Documents on File Type Date Recorded 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
--- NOTE | 2022-10-03 17:00 | CRLHL7_ITS ---
For Patients: As a result of the Century Cures Act, medical imaging exams and procedure reports are released immediately into your electronic medical record. You may view this report before your referring provider. If you have questions, please contact your health care provider. CLINICAL HISTORY: MENORRHAGIA Comparison: 08/30/2021 TECHNIQUE: 2D tatum scale and color Doppler images were acquired of the pelvis using a transvaginal approach. FINDINGS: On transvaginal imaging, the myometrium has a mildly heterogeneous echotexture. The uterus measures 9.2 x 5.3 x 6.0 cm. Incidental nabothian cysts are present. The endometrial lining appears thickened and measures 19 mm in thickness. The left ovary measures 3.4 x 1.1 x 1.3 cm in size and the right ovary measures 3.1 x 1.7 x 1.8 cm. The ovaries demonstrate normal arterial and venous blood flow on color Doppler analysis. Hemorrhagic right ovarian cyst measuring 1.7 x 1.4 x 1.4 cm. Previously noted left ovarian cyst has since resolved. There are no suspicious fluid collections within the cul-de-sac. IMPRESSION: Thickened endometrium measuring 19 millimeters. Dictated by Erich David MD @ 10/05/2022 8:25:08 AM (Electronically Signed)
== END 2022-10-03 16:50 | disposition home or self-care (01) ==
LOC: US 16:50
PROVIDERS: PCP Internal Medicine; Visit Provider Obstetrics & Gynecology
DX: N92.0 Excessive and frequent menstruation with regular cycle (principal); R93.89 Abnormal findings on diagnostic imaging of other specified body structures; E66.01 Morbid (severe) obesity due to excess calories
CPT/HCPCS: 76830

== ENCOUNTER 2022-10-25 12:39 | Day surgery (SDC) | payer OTHER, SELFPAY ==
[2022-10-25] MEDS: LACTATED RINGERS 1000 ML 1,000 ML 100 ML IV (12:55)
[2022-10-25] MEDS: SODIUM CHLORIDE 0.9 % (FLUSH) 10 ML SYRINGE IVF (12:55)
[2022-10-25 13:07] VITALS: BP 131/53; PULSE 86; RESP 18; TEMP 36.7; O2SAT 98; BMI 51.5
--- NOTE | 2022-10-25 13:12 | SUR.PREOP ---
VISUALIZED PATIENTS HOME COVID TEST, RESULTS NEGATIVE
[2022-10-25 13:33] LABS: Hemoglobin* 10.7 gm/dL (12.0-16.0)
[2022-10-25 13:43] LABS: Ur HCG Qualitative* Negative (Negative)
--- NOTE | 2022-10-25 16:54 | P.GYNPRC_ITS ---
Procedure Note Time Seen by Provider: 14:00 Date Seen: 10/25/22 Procedure Details: Preoperative diagnosis: 42 year-old with menorrhagia. Postoperative diagnosis: Menorrhagia 2/2 to polyp Procedure: Hysteroscopy, dilation and curettage, polypectomy Anesthesia: Conscious sedation with paracervical block. Surgeon: Afsaneh Stoll MD Estimated blood loss: <5 cc Urine output: 150 cc IVF: 1000 cc Fluid deficit: 135 cc Specimen: Polyp and endometrial curettings to pathology. Findings: Exam under anesthesia: Cervix palpates normal. Uterus: anteverted position, 8 week size, mobile, without nodularity/masses palpable. Adnexa were without fullness or nodularity. On hysteroscopy: Polyp occluding half of her endometrial cavity noted on right side. Otherwise, healthy appearing endometrium. Procedure: Nanette was taken to the operating where conscious sedation was found to be adequate. She was placed in the dorsal lithotomy position. An exam under anesthesia was performed with findings stated above. She was then prepped and draped in normal sterile manner. She was straight cathed to empty her bladder. A bivalve metal speculum was placed in the vaginal canal. The cervix and vaginal canal appear normal. A paracervical block was placed using 1% lidocaine: 5 mL injected at the 12, 4 and 8 o'clock positions on the cervix. The anterior lip of the cervix was then grasped with a long Allis clamp. The cervix was dilated to Hegar 6. The uterus sounded to 9 cm. The hysteroscope advanced into the uterus and a diagnostic hysteroscopy was performed with findings stated above. Normal saline was used as the insufflation medium. Polypectomy and endometrial curretting obtained with Jefry- clear soft tissue morcellator. The hysteroscope was then removed. The hysteroscope was then readvanced into the uterus and documented a normal appearing uterine cavity. Fluid deficit at the end of the procedure 135 mL. The hysteroscope and Allis clamp were removed from the uterus and cervix. Excellent hemostasis noted. Nothing was used for hemostasis. The patient tolerated the procedure well. Sponge, lap and instruments counts were correct at the end of the procedure. The patient was awakened from anesthesia and taken to the recovery area in stable condition.
--- NOTE | 2022-10-25 16:58 | W.ANESCHARGE ---
Anesthesia Charges Start Date/Time Anesthesia Start Date: 10/25/22 Anesthesia Start Time: 16:10 Stop Date/Time Anesthesia Stop Date: 10/25/22 Anesthesia Stop Time: 16:58 Summary Emergency: No
--- NOTE | 2022-10-25 17:02 | W.ANESCHARGE ---
Anesthesia Charges Start Date/Time Anesthesia Start Date: 10/25/22 Anesthesia Start Time: 16:10 Stop Date/Time Anesthesia Stop Date: 10/25/22 Anesthesia Stop Time: 16:58 Summary Emergency: No
[2022-10-25 17:05] VITALS: BP 120/72; BP 126/74; PULSE 68; PULSE 73; RESP 16; RESP 20; TEMP 36.2; O2SAT 90; O2SAT 92
[2022-10-25 17:20] VITALS: BP 128/78; PULSE 73; RESP 20; TEMP 36.2; O2SAT 93
[2022-10-25 17:38] VITALS: BP 125/78; PULSE 71; RESP 20; TEMP 36.4; O2SAT 94
[2022-10-25 18:00] VITALS: BP 130/82; PULSE 74; RESP 20; TEMP 36.4; O2SAT 96
== END 2022-10-25 18:14 | disposition home or self-care (01) ==
PROVIDERS: PCP Internal Medicine; Visit Provider Obstetrics & Gynecology
PROC: 0UDB8ZZ Extraction of Endometrium, Via Natural or Artificial Opening Endoscopic (ICD-10-PCS; CPT 58558; principal; 2022-10-25 13:45)
DX: N92.0 Excessive and frequent menstruation with regular cycle (principal); N84.0 Polyp of corpus uteri
CPT/HCPCS: 58558; 00952; 36415; 81025; 85018; 88305; J1100; J1885; J2250; J2405; J2704; J3010; J3490; J7120

== ENCOUNTER 2022-10-30 15:49 | Emergency (ER) | payer OTHER, SELFPAY ==
[2022-10-30 16:22] VITALS: BP 127/88; PULSE 70; RESP 16; TEMP 36.5; O2SAT 98; BMI 50.8
--- NOTE | 2022-10-30 16:34 | CRLHL7_ITS ---
For Patients: As a result of the Century Cures Act, medical imaging exams and procedure reports are released immediately into your electronic medical record. You may view this report before your referring provider. If you have questions, please contact your health care provider. INDICATION: Pain and swelling. COMPARISON: Right lower extremity venous ultrasound 08/10/2021. TECHNIQUE: A compression venous ultrasound exam was performed of the right lower extremity using tatum-scale imaging, color Doppler and spectral Doppler analysis. FINDINGS: Sonographic imaging of the right lower extremity demonstrates normal compressibility and color Doppler venous blood flow within the common femoral vein, deep femoral vein, and the proximal greater saphenous vein. Within the thigh, the femoral vein is patent and compressible. At a lower level, the popliteal, peroneal, and posterior tibial veins also show normal compressibility and color Doppler venous blood flow. Limited imaging of the contralateral groin demonstrates a normal spectral waveform and color Doppler venous blood flow within the left common femoral vein. IMPRESSION: Negative for acute DVT in the right lower extremity. Dictated by Maryanne Sibley MD @ 10/30/2022 6:00:31 PM (Electronically Signed)
--- NOTE | 2022-10-30 16:36 | ED.GENADULT ---
HPI - General Adult General Chief complaint: Extremity Pain/Injury, Lower Stated complaint: Possible DVT Time Seen by Provider: 10/30/22 16:30 History of Present Illness HPI narrative: Pt is a 42 year old woman who 5 days ago had a D and C for dysmenorrhea who presents wtih a 2 day history of pain and swelling in the right lower extremity from the ankle to the knee. Pt has no bruising or history of injury. Pt has no shortness of breath or history of clotting disorder. Pt states that she feels well otherwise and has had no abd pain or vaginal bleeding. Pt states the pain is mild and that she is able to walk without difficulty. No treatments prior to arrival. Pt is concerned that she may have a DVT. Related Data Home Medications Medication Instructions Recorded Confirmed multivitamin-ferrous 1 tab PO QDAY 09/13/22 10/30/22 fumarate-folic acid 18 mg-400 mcg tablet (Centrum Women) omeprazole 20 mg tablet,delayed 20 mg PO QDAY 09/13/22 10/30/22 release Previous Rx's Medication Instructions Recorded metoprolol succinate 50 mg 50 mg PO QDAY #90 tabs 10/02/22 tablet,extended release 24 hr Allergies Allergy/AdvReac Type Severity Reaction Status Date / Time erythromycin base Allergy Intermediate Hives Verified 10/30/22 16:21 Review of Systems Status of ROS: Reports: 6 or more systems reviewed and unremarkable except as noted in History and below PFSH PFS Medical History Anemia Essential hypertension Surgical History History of basal cell carcinoma excision History of foot surgery (07/28/10) History of hand surgery (07/28/10) History of laparoscopic cholecystectomy Social History Smoking Status: Never smoker Do you use any of these nicotine containing products: None Second hand tobacco smoke exposure: No How often do you have a drink containing alcohol: never How often do you have six or more drinks on one occasion: Never AUDIT-C Alcohol total score: 0 Non-prescribed substance use: denies use Caffeine: Yes Little interest or pleasure in doing things: not at all Feeling down, depressed, or hopeless: several days Are you using contraception or practicing any form of control: No service: No Exam Narrative: Exam Narrative: EXAM GENERAL: Patient appears comfortable and well. EYES: No scleral icterus. THYROID: no thyroid nodules or thyromegaly. LYMPH: No supraclavicular or cervical lymphadenopathy. SKIN: Visible skin seen during exam normal or with benign process only. EXT: No dependent lower extremity pedal edema. HEART: Regular rate and rhythm with no murmurs, rubs, or gallops. LUNGS: Clear to auscultation bilaterally with no crackles or wheezes. ABD: Soft, non tender, non distended. PSYCH: Good eye contact, speech is not pressured. Const: Vital Signs, click to edit/add: Vital Signs - 24 hr 10/30/22 16:22 Temperature 97.7 F Pulse Rate [Pulse Oximeter] 70 Respiratory Rate 16 Blood Pressure [Ri ght Upper Arm] 127/88 Pulse Oximetry 98 Oxygen Delivery Me thod Room Air Course Course Hospital Course: Pt seen and examined. Venous ultrasound of the right lower extremity negative for DVT. Vital Signs Vital signs: Initial Vital Signs Temperature 97.7 F 10/30/22 16:22 Temperature Source Oral 10/30/22 16:22 Pulse Rate 70 10/30/22 16:22 Pulse Rhythm 10/30/22 16:22 Pulse Strength 3+ Normal 10/30/22 16:22 Respiratory Rate 16 10/30/22 16:22 Blood Pressure 127/88 10/30/22 16:22 Blood Pressure Mean 101 10/30/22 16:22 Blood Pressure Position Sitting 10/30/22 16:22 Pulse Oximetry 98 10/30/22 16:22 Oxygen Delivery Method 10/30/22 16:22 Vital Signs Temperature 97.7 F 10/30/22 16:22 Pulse Rate 70 10/30/22 16:22 Respiratory Rate 16 10/30/22 16:22 Blood Pressure 127/88 10/30/22 16:22 Pulse Oximetry 98 10/30/22 16:22 Oxygen Delivery Method 10/30/22 16:22 Temperature 97.7 F 10/30/22 16:22 Pulse Rate 70 10/30/22 16:22 Respiratory Rate 16 10/30/22 16:22 Blood Pressure 127/88 10/30/22 16:22 Pulse Oximetry 98 10/30/22 16:22 Oxygen Delivery Method 10/30/22 16:22 Medical Decision Making MDM Narrative Medical decision making narrative: Pt presents 5 days after D and C with pain and swelling in the right lower extremity. Pt's Venous Ultrasound is negative for clot. Pt has no other concerns and will be released with symptomatic treatment and PCP follow up. Differential Diagnosis Differential Diagnosis: DVT, Christopher's Cyst, Cellulits, Edema. Discharge Plan Discharge Clinical Impression: Acute leg pain Condition: Stable Instructions: Leg Pain (ED) Additional Instructions: Ice Tylenol Motrin Advance activity as tolerated Activity Level: Activity as Tolerated Discharge Diet: Regular Prescriptions: No Action omeprazole 20 mg tablet,delayed release (DR/EC) 20 mg PO QDAY Centrum Women 18-400 mg-mcg tablet 1 tab PO QDAY metoprolol succinate 50 mg tablet extended release 24 hr 50 mg PO QDAY Qty: 90 2RF Follow Up/Referrals: Akilah Khanna MD [Primary Care Provider] - Stand Alone Forms: [employer] Info Instructions
== END 2022-10-30 17:45 | disposition home or self-care (01) ==
PROVIDERS: Emergency Provider Internal Medicine; PCP Internal Medicine
DX: M79.661 Pain in right lower leg (principal)
CPT/HCPCS: 93971; 99283

== ENCOUNTER 2022-10-31 23:12 | Emergency (ER) | payer OTHER, SELFPAY ==
[2022-10-31 23:14] VITALS: BP 159/100; PULSE 77; TEMP 35.9; O2SAT 99; BMI 50.8
--- NOTE | 2022-10-31 23:33 | CRLHL7_ITS ---
For Patients: As a result of the Cures Act, medical imaging exams and procedure reports are released immediately into your electronic medical record. You may view this report before your referring provider. If you have questions, please contact your health care provider. Indication: Infrapatellar tendon pain. Technique: Right knee 3 views. Comparison: None. Findings: Bones: Alignment is normal. No fractures or bone lesions. Joint spaces: Joint spaces are well maintained. No degenerative changes. No sign of joint effusion. Soft tissues: Unremarkable. Impression: Normal right knee. No findings to explain infrapatellar pain Dictated by Jay Rodriguez MD @ 11/01/2022 12:03:01 AM (Electronically Signed)
--- NOTE | 2022-11-01 00:14 | ED_ITS ---
HPI - Extremity Injury (Lower) General Chief Complaint: Extremity Pain/Injury, Lower Stated Complaint: right lower leg pain Time Seen by Provider: 10/31/22 23:21 History of Present Illness HPI Narrative: 42 yo woman returning to the ER tonight with concern of upper right calf pain, a persistent throbbing that is present in right upper outer calf and wraps around then including flares of pain in the infra-patellar region. no injury. no rash. no h/o dvt/pe. no neurological disease. no other joints with pain. no joint swelling. no fevers. was seen yesterday in this department with concern of mid- upper right calf pain. At the time right LE US scanning was neg for DVT or other findings. this morning seen in primary care and initiated on prednisone with concern of lumbar radicular disease. She is without chest pain or shortness of breath. She is concerned that something might have been missed in the scan. h/o generalized anxiety. No rheumatological or neurological disorders noted in family. Related Data Home Medications Medication Instructions Recorded Confirmed multivitamin-ferrous 1 tab PO QDAY 09/13/22 10/31/22 fumarate-folic acid 18 mg-400 mcg tablet (Centrum Women) omeprazole 20 mg tablet,delayed 20 mg PO QDAY 09/13/22 10/31/22 release Previous Rx's Medication Instructions Recorded metoprolol succinate 50 mg 50 mg PO QDAY #90 tabs 10/02/22 tablet,extended release 24 hr furosemide 20 mg tablet 20 mg PO QAM PRN edema #20 tabs 10/31/22 prednisone 20 mg tablet 40 mg PO QDAY #10 tabs 10/31/22 gabapentin 300 mg capsule 300 mg PO TID #45 caps 11/01/22 Allergies Allergy/AdvReac Type Severity Reaction Status Date / Time erythromycin base Allergy Intermediate Hives Verified 11/02/22 01:02 Review of Systems Status of ROS: Reports: 10 or more systems reviewed and unremarkable except as noted in History and below [facility] Medical History (Updated 11/02/22 @ 02:44 by Erich Fontaine MD) Acute leg pain Anemia Edema Essential hypertension BELLA (generalized anxiety disorder) Migraine Morbid obesity with body mass index (BMI) of 40.0 or higher Surgical History History of basal cell carcinoma excision History of foot surgery (07/28/10) History of hand surgery (07/28/10) History of laparoscopic cholecystectomy Social History Smoking Status: Never smoker Do you use any of these nicotine containing products: None Second hand tobacco smoke exposure: No How often do you have a drink containing alcohol: never How often do you have six or more drinks on one occasion: Never AUDIT-C Alcohol total score: 0 Non-prescribed substance use: denies use Caffeine: Yes Little interest or pleasure in doing things: not at all Feeling down, depressed, or hopeless: several days Are you using contraception or practicing any form of control: No service: No Exam Narrative: Exam Narrative: pleasant, nad other than mildly anxious. breathing easily. cv rrr no mrg skin is warm and dry. no rash. extremities are well-perfused. no le edema. there is a patch of superficial varicosities at the upper outer right calf area, not particularly inflamed but a little tender to palpation. no joint effusion. no pain or laxity to varus or valgus stressors. no patellar tendon defect or pain. excellent non-tender resistance and strength demonstrated to extension and flexion at the knee. scattered superficial varicosities otherwise. not apprehensive to patellar manipulation. Const: Vital Signs, click to edit/add: Vital Signs - 24 hr 10/31/22 23:14 Temperature 96.7 F L Pulse Rate [Left P ulse Oximeter] 77 Blood Pressure [Ri ght Upper Arm] 159/100 H Pulse Oximetry 99 Oxygen Delivery Me thod Room Air Documenting provider has reviewed patient's vital signs: yes Course Vital Signs Vital signs: Initial Vital Signs Temperature 96.7 F L 10/31/22 23:14 Temperature Source Temporal Artery Scan 10/31/22 23:14 Pulse Rate 77 10/31/22 23:14 Blood Pressure 159/100 H 10/31/22 23:14 Blood Pressure Mean 119 10/31/22 23:14 Blood Pressure Position Sitting 10/31/22 23:14 Pulse Oximetry 99 10/31/22 23:14 Oxygen Delivery Method 10/31/22 23:14 Vital Signs Temperature 96.7 F L 10/31/22 23:14 Pulse Rate 77 10/31/22 23:14 Blood Pressure 159/100 H 10/31/22 23:14 Pulse Oximetry 99 10/31/22 23:14 Oxygen Delivery Method 10/31/22 23:14 Temperature 96.7 F L 10/31/22 23:14 Pulse Rate 79 11/01/22 00:27 Blood Pressure 136/89 11/01/22 00:27 Pulse Oximetry 97 11/01/22 00:27 Oxygen Delivery Method 11/01/22 00:27 MDM - Extremity Injury (Lower) MDM Narrative Medical decision making narrative: i doubt spinal radicular disease here. lower level impingement? fibular nerve pain? -- doesn't explain reported patellar tendon discomfort. pain from yesterday has migrated proximal in leg. pmr or similar unlikely without more systemic disease. no weakness or precedent illness to explain/precipitate neurological flare. no xrays done yet. upper level imaging not yet warranted/indicated. 3 view knee reviewed by me is unremarkable. edema at mcl? -- no pain here on exam. mildy narrowed medial compartment not unexpected. i did review us from earlier with the performing technologist and rad sivakumar. describing a more neuropathic pain. trial of gabapentin? and clinic follow up for further testing/evaluation. no clear emergent issue here other than pain and i think exacerbation of anxiety. i was called back before departure to ask why d-dimer wasn't ordered. would not add or dx in this case already with nl scan. Medical Records Attestation: I reviewed the patient's medical records. Discharge Plan Discharge Clinical Impression: Upper leg pain Patient Disposition: Home, Self-Care Condition: Stable Additional Instructions: can take this gabapentin when you get home. I would try to stretch this area out. Might try icing it 2-3 times daily over the next few days with icing bag as discussed. Schedule appointment for follow-up in primary care for maybe the middle of next week. Prescriptions: New gabapentin 300 mg capsule 300 mg PO TID Qty: 45 0RF No Action omeprazole 20 mg tablet,delayed release (DR/EC) 20 mg PO QDAY Centrum Women 18-400 mg-mcg tablet 1 tab PO QDAY metoprolol succinate 50 mg tablet extended release 24 hr 50 mg PO QDAY Qty: 90 2RF prednisone 20 mg tablet 40 mg PO QDAY Qty: 10 0RF furosemide 20 mg tablet 20 mg PO QAM PRN (Reason: edema) Qty: 20 1RF Rx Instructions: use for 2-3 days as needed for leg swelling Follow Up/Referrals: Akilah Khanna MD [Primary Care Provider] - Stand Alone Forms: [employer] Info Instructions
[2022-11-01 00:27] VITALS: BP 136/89; PULSE 79; O2SAT 97
[2022-11-01] MEDS: GABAPENTIN 300 MG CAPSULE PO (00:35)
== END 2022-11-01 00:37 | disposition home or self-care (01) ==
PROVIDERS: Emergency Provider Family Medicine; PCP Internal Medicine
DX: M79.651 Pain in right thigh (principal)
CPT/HCPCS: 73562; 99284; A9270

== ENCOUNTER 2022-11-02 00:49 | Emergency (ER) | payer OTHER, SELFPAY ==
[2022-11-02 00:59] VITALS: BP 149/99; PULSE 87; RESP 18; TEMP 36.8; O2SAT 99; BMI 51.3
[2022-11-02 01:00] VITALS: RESP 18; O2SAT 99
--- NOTE | 2022-11-02 01:34 | ED_ITS ---
HPI - General Adult General Date Seen: 11/02/22 Chief complaint: Unspecified Complaint, Adult Stated complaint: both legs/chest/left side head pain Time Seen by Provider: 11/02/22 00:58 History of Present Illness HPI narrative: Patient is a 42-year-old female who is in the ER for the 4th time in recent weeks. She has also been to the clinic once. This began with pain in her right calf this was evaluated with a normal D-dimer test and a normal ultrasound. She was prescribed prednisone in the clinic with the thought that this could be lumbar radiculopathy but she never filled the prescription. She was given gabapentin during one of her ER visits but has only taken one dose. She has tried some ibuprofen. Tonight she became concerned because the pain moved into her left leg as well. She is also having some brief, 2nd pains in her left forehead and little bit of discomfort in her chest. There is no exertional component. No shortness of breath, nausea, vomiting, fever. She looked up her symptoms on the Internet she became concerned with some of the diagnoses that she came across. She has never had pain like this previously. It is not debilitating. Related Data Home Medications Medication Instructions Recorded Confirmed multivitamin-ferrous 1 tab PO QDAY 09/13/22 10/31/22 fumarate-folic acid 18 mg-400 mcg tablet (Centrum Women) omeprazole 20 mg tablet,delayed 20 mg PO QDAY 09/13/22 10/31/22 release Previous Rx's Medication Instructions Recorded metoprolol succinate 50 mg 50 mg PO QDAY #90 tabs 10/02/22 tablet,extended release 24 hr furosemide 20 mg tablet 20 mg PO QAM PRN edema #20 tabs 10/31/22 prednisone 20 mg tablet 40 mg PO QDAY #10 tabs 10/31/22 gabapentin 300 mg capsule 300 mg PO TID #45 caps 11/01/22 Allergies Allergy/AdvReac Type Severity Reaction Status Date / Time erythromycin base Allergy Intermediate Hives Verified 11/02/22 01:02 Review of Systems Narrative: Review of systems is as outlined above otherwise noted to be negative. [facility] Medical History (Updated 11/02/22 @ 02:44 by Erich Fontaine MD) Acute leg pain Anemia Edema Essential hypertension BELLA (generalized anxiety disorder) Migraine Morbid obesity with body mass index (BMI) of 40.0 or higher Surgical History History of basal cell carcinoma excision History of foot surgery (07/28/10) History of hand surgery (07/28/10) History of laparoscopic cholecystectomy Social History Smoking Status: Never smoker Do you use any of these nicotine containing products: None Second hand tobacco smoke exposure: No How often do you have a drink containing alcohol: never How often do you have six or more drinks on one occasion: Never AUDIT-C Alcohol total score: 0 Non-prescribed substance use: denies use Caffeine: Yes Little interest or pleasure in doing things: not at all Feeling down, depressed, or hopeless: several days Are you using contraception or practicing any form of control: No service: No Exam Narrative: Exam Narrative: Vitals noted. HEENT: Conjunctiva clear. Neck is supple without adenopathy, thyromegaly, carotid bruit. Lungs: Clear to auscultation in all parker. No wheezes, rales, rhonchi. Heart: Regular rate and rhythm without murmur. Abdomen: Soft and nontender. No guarding, rigidity, rebound. Bowel sounds are normal. No palpable masses. Extremities: No cyanosis or edema. Good distal pulses. No palpable cords. Negative Homans sign. No specific areas of palpable tenderness. Skin: No abnormalities noted of the exposed skin. Neurologic: Awake, alert, fully oriented. Neurologic exam is nonfocal. Const: Vital Signs, click to edit/add: Vital Signs - 24 hr 11/02/22 00:59 11/02/22 01:00 Temperature 98.2 F Pulse Rate [Right Pulse Oximeter] 87 Respiratory Rate 18 Respiratory Rate [ Chest] 18 Respiratory Rate [ Left Head] 18 Respiratory Rate [ Left Leg] 18 Respiratory Rate [ Right Leg] 18 Blood Pressure [Ri ght Upper Arm] 149/99 H Pulse Oximetry 99 Oxygen Delivery Me thod Room Air Course Course Hospital Course: Patient was seen and examined. She is in no distress. Labs are ordered. She declines a need for pain medicine. Reevaluation(s) Reevaluation #1: Labs have all returned with normal results other than a hemoglobin of 11.1 which is up from her last check. She was sleeping comfortably. We had a discussion about the unknown cause of her brief, migratory pains. I think worrisome causes have been fairly well limited. We discussed regular use of an anti-inflammatory and gabapentin and close follow-up in the clinic if her symptoms do not improve. Vital Signs Vital signs: Initial Vital Signs Temperature 98.2 F 11/02/22 00:59 Temperature Source Temporal Artery Scan 11/02/22 00:59 Pulse Rate 87 11/02/22 00:59 Respiratory Rate 18 11/02/22 00:59 Blood Pressure 149/99 H 11/02/22 00:59 Blood Pressure Mean 115 11/02/22 00:59 Blood Pressure Position Sitting 11/02/22 00:59 Pulse Oximetry 99 11/02/22 00:59 Oxygen Delivery Method 11/02/22 00:59 Vital Signs Temperature 98.2 F 11/02/22 00:59 Pulse Rate 87 11/02/22 00:59 Respiratory Rate 18 11/02/22 00:59 Blood Pressure 149/99 H 11/02/22 00:59 Pulse Oximetry 99 11/02/22 00:59 Oxygen Delivery Method 11/02/22 00:59 Temperature 98.2 F 11/02/22 00:59 Pulse Rate 87 11/02/22 00:59 Respiratory Rate 18 11/02/22 01:00 Blood Pressure 149/99 H 11/02/22 00:59 Pulse Oximetry 99 11/02/22 00:59 Oxygen Delivery Method 11/02/22 00:59 Medical Decision Making Lab Data Labs: Lab Results 11/02/22 11/02/22 Range/Units 01:45 01:45 WBC 8.37 (4.50-11.00) K/uL RBC 3.94 L (4.00-5.20) m/uL Hgb 11.1 L (12.0-16.0) gm/dL Hct 34.7 (33.0-51.0) % MCV 88 (80-100) fL MCH 28 (26-34) pg MCHC 32 (32-36) gm/dL RDW Coeff of Erwin 14.9 (11.5-15.5) % Plt Count 305 (140-440) K/uL Neut % (Auto) 61.9 (42.0-72.0) % Lymph % (Auto) 30.0 (20-44) % [place] % (Auto) 5.0 (0.0-11.0) % Eos % (Auto) 2.3 (0.0-7.0) % Baso % (Auto) 0.4 (0.0-3.0) % Neut # (Auto) 5.19 (1.7-7.0) K/uL Lymph # (Auto) 2.51 (0.90-2.90) K/uL [place] # (Auto) 0.40 (0.00-0.90) K/UL Eos # (Auto) 0.19 (0.00-0.50) K/uL Baso # (Auto) 0.03 (0.00-0.30) K/uL Sodium 141 (135-149) mmol/L Potassium 3.9 (3.6-5.1) mmol/L Chloride 107 (96-114) mmol/L Carbon Dioxide 28 (20-32) mmol/L BUN 12 (5-24) mg/dL Creatinine 0.5 (0.5-1.5) mg/dL Estimated Creat Clear 140.01 Estimated GFR 122 ml/min Glucose 118 H (60-115) mg/dL Calcium 8.6 (8.4-10.6) mg/dL Magnesium 1.9 (1.5-2.6) mg/dL Total Bilirubin 0.3 (0.1-1.5) mg/dL AST 16 (12-35) U/L ALT 18 (4-35) U/L Alkaline Phosphatase 67 (40-150) U/L Total Creatine Kinase 27 L (41-117) U/L C-Reactive Protein 0.5 (0.5-1.0) mg/dL Total Protein 6.8 (6.0-8.3) g/dL Albumin 4.0 (3.3-5.0) g/dL Discharge Plan Discharge Clinical Impression: Generalized pain Patient Disposition: Home, Self-Care Condition: Stable Additional Instructions: Rest, stay hydrated, ibuprofen 800 mg 3 times daily with food, gabapentin 300 mg 3 times daily. If symptoms are not improving over the next four five days please follow-up with Dr. Khanna for further evaluation. Prescriptions: No Action omeprazole 20 mg tablet,delayed release (DR/EC) 20 mg PO QDAY Centrum Women 18-400 mg-mcg tablet 1 tab PO QDAY metoprolol succinate 50 mg tablet extended release 24 hr 50 mg PO QDAY Qty: 90 2RF prednisone 20 mg tablet 40 mg PO QDAY Qty: 10 0RF furosemide 20 mg tablet 20 mg PO QAM PRN (Reason: edema) Qty: 20 1RF Rx Instructions: use for 2-3 days as needed for leg swelling gabapentin 300 mg capsule 300 mg PO TID Qty: 45 0RF Follow Up/Referrals: Akilah Khanna MD [Primary Care Provider] - Stand Alone Forms: [employer] Info Instructions
[2022-11-02 01:54] LABS: Basophils Absolute Auto 0.03 K/uL (0.00-0.30); Basophils Percent Auto 0.4 % (0.0-3.0); Eosinophils Absolute Auto 0.19 K/uL (0.00-0.50); Eosinophils Percent Auto 2.3 % (0.0-7.0); Hematocrit 34.7 % (33.0-51.0); Hemoglobin* 11.1 gm/dL (12.0-16.0); Immature Granulocytes Abs Auto 0.03 K/uL (0.00-0.30); Immature Granulocytes Pct Auto 0.4 %; Lymphocytes Absolute Auto 2.51 K/uL (0.90-2.90); Mean Corpuscular HGB Conc 32 gm/dL (32-36); Mean Corpuscular Hemoglobin 28 pg (26-34); Mean Corpuscular Volume 88 fL (80-100); Neutrophils Absolute Auto 5.19 K/uL (1.7-7.0); Neutrophils Percent Auto 61.9 % (42.0-72.0); Platelet Count* 305 K/uL (140-440); RDW Coefficient of Variation % 14.9 % (11.5-15.5); Red Blood Count 3.94 m/uL (4.00-5.20); White Blood Count* 8.37 K/uL (4.50-11.00)
[2022-11-02 01:57] LABS: Slide Review Reflex No
[2022-11-02 02:09] LABS: Chloride* 107 mmol/L (96-114); Sodium* 141 mmol/L (135-149)
[2022-11-02 02:10] LABS: Potassium* 3.9 mmol/L (3.6-5.1)
[2022-11-02 02:11] LABS: Creatinine* 0.5 mg/dL (0.5-1.5); Est. Creatinine Clearance* 140.01; Estimated Glomerular Filt Rate 122 ml/min
[2022-11-02 02:12] LABS: Alanine Aminotransferase* 18 U/L (4-35); Alkaline Phosphatase* 67 U/L (40-150); Aspartate Amino Transferase* 16 U/L (12-35); Bilirubin Total* 0.3 mg/dL (0.1-1.5); Blood Urea Nitrogen* 12 mg/dL (5-24); Calcium* 8.6 mg/dL (8.4-10.6); Carbon Dioxide* 28 mmol/L (20-32); Creatine Kinase* 27 U/L (41-117); Glucose* 118 mg/dL (60-115); Total Protein* 6.8 g/dL (6.0-8.3)
[2022-11-02 02:13] LABS: Magnesium* 1.9 mg/dL (1.5-2.6)
[2022-11-02 02:15] LABS: C Reactive Protein* 0.5 mg/dL (0.5-1.0)
[2022-11-02 03:00] VITALS: BP 135/85; PULSE 81; RESP 18; TEMP 36.8; O2SAT 99
[2022-11-02 03:17] VITALS: BP 149/99; PULSE 87; RESP 18; TEMP 36.8
== END 2022-11-02 03:00 | disposition home or self-care (01) ==
PROVIDERS: Emergency Provider Family Medicine; PCP Internal Medicine
DX: R07.9 Chest pain, unspecified (principal); R51.9 Headache, unspecified; M79.605 Pain in left leg; M79.604 Pain in right leg
CPT/HCPCS: 36415; 80053; 82550; 83735; 85025; 86140; 93005; 99283

== ENCOUNTER 2022-11-02 13:01 | Emergency (ER) | payer OTHER, SELFPAY ==
[2022-11-02 13:09] VITALS: BP 152/89; PULSE 85; RESP 16; TEMP 36.8; O2SAT 98; BMI 51.3
--- NOTE | 2022-11-02 13:26 | ED.GENADULT ---
HPI - General Adult General Time Seen by Provider: 13:26 Date Seen: 11/02/22 Chief complaint: Chest Pain Stated complaint: chest pain, shortness of breath Time Seen by Provider: 11/02/22 13:10 Source: patient and RN notes reviewed Mode of arrival: ambulatory Limitations: no limitations History of Present Illness HPI narrative: This 42-year-old female is coming in tearful, seemingly quite overwhelmed and concerned with her current medical status. She is ultimately worried about a pulmonary embolus. She had talked to triage nurse today to try to get a clinic appointment. The triage nurse told her reportedly that she should demand a chest CT, troponin, D-dimer for concern of a PE. She has had a bit of a significant medical history recently. She has been into the ER multiple times. I saw her back in September, she was diagnosed with anemia due to heavy menstrual cycles. She did have a D&C a believe on Saturday. She had some right calf pain on Saturday, recurred on Saturday. She had an ultrasound which was negative for DVT. She had not had a D-dimer done but with a negative ultrasound it would have not made a difference what the D-dimer was at that time. She is having a spasmodic or squeezing type chest discomfort. She has also been having recurrent spasming type pain in her legs. She states she has a known L4-5 disc issue on the left. I did ask her if anybody had considered reimaging her back. She states when she saw Dr. Mccain on Saturday, he did offer to do imaging. She had sent him a note back stating she did want to proceed with MRI of her back. She has not had right radiculopathy before but reviewed with her that if she has had on the left, there is concerned that her leg issues and pain could be from a radiculopathy. She has been given gabapentin for some of her symptoms recently, was prescribed prednisone this week but has not started it. She is tearful, just feels like she is getting the run around with her symptoms. She has started on a supplement with iron in it, wants know if the iron could maybe cause symptoms. Reviewed with her that iron usually would cause GI distress. Iron deficiency anemia can cause some generalized symptoms such is aches in my experience but should be improving, do know a recent hemoglobin was improved with her. She is quite worried, would really like to proceed with chest CT PE protocol. Did review with her that we could consider doing a screening D-dimer and if negative, would really probably not needed chest CT. However, I do think given her recent surgery with the D&C, frequent recent blood draws, there is a high chance that her D-dimer might come back elevated anyways. She would like to proceed with chest CT PE protocol, did review risk of radiation with this. She has had no abdominal pain, it in fact, states abdominal pain is the only place she has not had pain. She did note a little bit of a left-sided headache today with her symptoms. Related Data Home Medications Medication Instructions Recorded Confirmed multivitamin-ferrous 1 tab PO QDAY 09/13/22 10/31/22 fumarate-folic acid 18 mg-400 mcg tablet (Centrum Women) omeprazole 20 mg tablet,delayed 20 mg PO QDAY 09/13/22 10/31/22 release Previous Rx's Medication Instructions Recorded metoprolol succinate 50 mg 50 mg PO QDAY #90 tabs 10/02/22 tablet,extended release 24 hr furosemide 20 mg tablet 20 mg PO QAM PRN edema #20 tabs 10/31/22 prednisone 20 mg tablet 40 mg PO QDAY #10 tabs 10/31/22 gabapentin 300 mg capsule 300 mg PO TID #45 caps 11/01/22 Allergies Allergy/AdvReac Type Severity Reaction Status Date / Time erythromycin base Allergy Intermediate Hives Verified 11/02/22 01:02 Review of Systems Status of ROS: Reports: 10 or more systems reviewed and unremarkable except as noted in History and below [facility] Medical History (Updated 11/02/22 @ 16:38 by Pauline Alcantar MD) Acute leg pain Anemia Edema Essential hypertension BELLA (generalized anxiety disorder) Migraine Morbid obesity with body mass index (BMI) of 40.0 or higher Surgical History History of basal cell carcinoma excision History of foot surgery (07/28/10) History of hand surgery (07/28/10) History of laparoscopic cholecystectomy Social History Smoking Status: Never smoker Do you use any of these nicotine containing products: None Second hand tobacco smoke exposure: No How often do you have a drink containing alcohol: never How often do you have six or more drinks on one occasion: Never AUDIT-C Alcohol total score: 0 Non-prescribed substance use: denies use Caffeine: Yes Little interest or pleasure in doing things: not at all Feeling down, depressed, or hopeless: several days Are you using contraception or practicing any form of control: No service: No Exam Const: Vital Signs, click to edit/add: Vital Signs - 24 hr 11/02/22 13:09 11/02/22 13:41 Temperature 98.2 F Pulse Rate [Left P ulse Oximeter] 85 Respiratory Rate 16 Blood Pressure [Ri ght Upper Arm] 152/89 H Pulse Oximetry 98 99 Oxygen Delivery Me thod Room Air Documenting provider has reviewed patient's vital signs: yes Common normals: oriented x3, no limitations, healthy appearing, alert and well nourished General appearance: cooperative, comfortable, well kempt, well developed, in distress (Emotional distress with crying) moderate and anxious Nutritional appearance: obese HENMT: Common normals: normocephalic, head/scalp atraumatic and hearing grossly normal bilaterally Head and scalp: normocephalic and atraumatic Eye: Common normals: PERRL, EOMs intact bilaterally and no scleral icterus Pupil: PERRL Other: She has some vascular injection of her conjunctiva due to crying Neck & C-Spine: Common normals: full ROM, no lymphadenopathy, supple, no meningeal signs, no JVD and thyroid normal Thyroid: thyroid normal Resp: Common normals: normal respiratory effort, no retractions, no use of accessory muscles and clear to auscultation bilaterally Auscultation: clear to auscultation bilaterally Cardio: Common normals: no JVD, regular rate, regular rhythm, S1 normal heart sound, S2 normal heart sound, no gallops, no clicks and no murmurs Rate: regular rate Rhythm: regular rhythm Heart sounds: S1 normal and S2 normal GI: Common normals: Normal to inspection, nondistended, normoactive bowel sounds present, soft to palpation, non-tender, no hepatosplenomegaly, no masses and no bruits Palpation: soft and no hepatosplenomegaly Neuro: Common normals: oriented x3 and gait normal Sensorium/orientation: alert Meningeal signs: no meningeal signs Speech: speech normal Psych: Appearance: well kempt Course Course Hospital Course: Will have her on cardiac monitoring, pulse oximetry. Will order chest CT PE protocol. She will need an IV established. Did review with her that we would recheck blood work. I will certainly do a D-dimer and troponin for her. The D-dimer can serve as a baseline for us. If she has had a negative ultrasound this week and does have a negative chest CT for PE, I think we can safely put thromboembolic diagnoses to rest for the time being unless new symptoms arise. Will have EKG and troponin done as well. Reevaluation(s) Reevaluation #1: Reviewed with patient her labs are reassuring, hemoglobin improved even further. She asked about low CK, explained muscle enzymes, reviewed that we are worried when they are high. Radiology still has not reviewed her CT images, will try to watch and review as soon as they have been read. Time: 16:07 Reevaluation #2: Reviewed with patient that her CT showing no acute findings, no pulmonary emboli. She is happy to hear this. Will plan to discharge to home for further outpatient workup. Time: 16:36 Vital Signs Vital signs: Initial Vital Signs Temperature 98.2 F 11/02/22 13:09 Temperature Source Temporal Artery Scan 11/02/22 13:09 Pulse Rate 85 11/02/22 13:09 Pulse Rhythm 11/02/22 13:09 Pulse Strength 3+ Normal 11/02/22 13:09 Respiratory Rate 16 11/02/22 13:09 Blood Pressure 152/89 H 11/02/22 13:09 Blood Pressure Mean 110 11/02/22 13:09 Blood Pressure Position Sitting 11/02/22 13:09 Pulse Oximetry 98 11/02/22 13:09 Oxygen Delivery Method 11/02/22 13:09 Vital Signs Temperature 98.2 F 11/02/22 13:09 Pulse Rate 85 11/02/22 13:09 Respiratory Rate 16 11/02/22 13:09 Blood Pressure 152/89 H 11/02/22 13:09 Pulse Oximetry 98 11/02/22 13:09 Oxygen Delivery Method 11/02/22 13:09 Temperature 98.2 F 11/02/22 13:09 Pulse Rate 85 11/02/22 13:09 Respiratory Rate 16 11/02/22 13:09 Blood Pressure 152/89 H 11/02/22 13:09 Pulse Oximetry 99 11/02/22 13:41 Oxygen Delivery Method 11/02/22 13:09 Medical Decision Making Lab Data Lab results reviewed: Yes I reviewed the patient's lab results Labs: Lab Results 11/02/22 11/02/22 11/02/22 Range/Units 13:43 14:24 14:24 WBC 7.72 (4.50-11.00) K/uL RBC 4.26 (4.00-5.20) m/uL Hgb 11.9 L (12.0-16.0) gm/dL Hct 37.1 (33.0-51.0) % MCV 87 (80-100) fL MCH 28 (26-34) pg MCHC 32 (32-36) gm/dL RDW Coeff of Erwin 14.7 (11.5-15.5) % Plt Count 329 (140-440) K/uL Neut % (Auto) 71.0 (42.0-72.0) % Lymph % (Auto) 21.8 (20-44) % [place] % (Auto) 4.5 (0.0-11.0) % Eos % (Auto) 1.7 (0.0-7.0) % Baso % (Auto) 0.1 (0.0-3.0) % Neut # (Auto) 5.48 (1.7-7.0) K/uL Lymph # (Auto) 1.68 (0.90-2.90) K/uL [place] # (Auto) 0.30 (0.00-0.90) K/UL Eos # (Auto) 0.13 (0.00-0.50) K/uL Baso # (Auto) 0.01 (0.00-0.30) K/uL ESR (2-20) mm/hr D-Dimer Quant (PE/DVT) < 0.27 (0.00-0.50) ug/ml Sodium (135-149) mmol/L Potassium (3.6-5.1) mmol/L Chloride (96-114) mmol/L Carbon Dioxide (20-32) mmol/L BUN (5-24) mg/dL Creatinine (0.5-1.5) mg/dL Estimated Creat Clear Estimated GFR ml/min Glucose (60-115) mg/dL Lactate (0.5-1.9) mmol/L Calcium (8.4-10.6) mg/dL Magnesium (1.5-2.6) mg/dL Total Bilirubin (0.1-1.5) mg/dL AST (12-35) U/L ALT (4-35) U/L Alkaline Phosphatase (40-150) U/L Total Creatine Kinase (41-117) U/L C-Reactive Protein (0.5-1.0) mg/dL Total Protein (6.0-8.3) g/dL Albumin (3.3-5.0) g/dL TSH 1.950 (0.270-4.200) uIU/mL POC Troponin I (0.01-0.04) ng/ml 11/02/22 11/02/22 11/02/22 Range/Units 14:24 14:24 14:24 WBC (4.50-11.00) K/uL RBC (4.00-5.20) m/uL Hgb (12.0-16.0) gm/dL Hct (33.0-51.0) % MCV (80-100) fL MCH (26-34) pg MCHC (32-36) gm/dL RDW Coeff of Erwin (11.5-15.5) % Plt Count (140-440) K/uL Neut % (Auto) (42.0-72.0) % Lymph % (Auto) (20-44) % [place] % (Auto) (0.0-11.0) % Eos % (Auto) (0.0-7.0) % Baso % (Auto) (0.0-3.0) % Neut # (Auto) (1.7-7.0) K/uL Lymph # (Auto) (0.90-2.90) K/uL [place] # (Auto) (0.00-0.90) K/UL Eos # (Auto) (0.00-0.50) K/uL Baso # (Auto) (0.00-0.30) K/uL ESR 11 (2-20) mm/hr D-Dimer Quant (PE/DVT) (0.00-0.50) ug/ml Sodium 140 (135-149) mmol/L Potassium 4.2 (3.6-5.1) mmol/L Chloride 107 (96-114) mmol/L Carbon Dioxide 25 (20-32) mmol/L BUN 9 (5-24) mg/dL Creatinine 0.5 (0.5-1.5) mg/dL Estimated Creat Clear 140.01 Estimated GFR 122 ml/min Glucose 87 (60-115) mg/dL Lactate (0.5-1.9) mmol/L Calcium 8.7 (8.4-10.6) mg/dL Magnesium 1.9 (1.5-2.6) mg/dL Total Bilirubin 0.5 (0.1-1.5) mg/dL AST 20 (12-35) U/L ALT 19 (4-35) U/L Alkaline Phosphatase 65 (40-150) U/L Total Creatine Kinase 25 L (41-117) U/L C-Reactive Protein 0.6 (0.5-1.0) mg/dL Total Protein 7.0 (6.0-8.3) g/dL Albumin 4.2 (3.3-5.0) g/dL TSH (0.270-4.200) uIU/mL POC Troponin I (0.01-0.04) ng/ml 11/02/22 11/02/22 Range/Units 14:24 14:24 WBC (4.50-11.00) K/uL RBC (4.00-5.20) m/uL Hgb (12.0-16.0) gm/dL Hct (33.0-51.0) % MCV (80-100) fL MCH (26-34) pg MCHC (32-36) gm/dL RDW Coeff of Erwin (11.5-15.5) % Plt Count (140-440) K/uL Neut % (Auto) (42.0-72.0) % Lymph % (Auto) (20-44) % [place] % (Auto) (0.0-11.0) % Eos % (Auto) (0.0-7.0) % Baso % (Auto) (0.0-3.0) % Neut # (Auto) (1.7-7.0) K/uL Lymph # (Auto) (0.90-2.90) K/uL [place] # (Auto) (0.00-0.90) K/UL Eos # (Auto) (0.00-0.50) K/uL Baso # (Auto) (0.00-0.30) K/uL ESR (2-20) mm/hr D-Dimer Quant (PE/DVT) (0.00-0.50) ug/ml Sodium (135-149) mmol/L Potassium (3.6-5.1) mmol/L Chloride (96-114) mmol/L Carbon Dioxide (20-32) mmol/L BUN (5-24) mg/dL Creatinine (0.5-1.5) mg/dL Estimated Creat Clear Estimated GFR ml/min Glucose (60-115) mg/dL Lactate 1.2 (0.5-1.9) mmol/L Calcium (8.4-10.6) mg/dL Magnesium (1.5-2.6) mg/dL Total Bilirubin (0.1-1.5) mg/dL AST (12-35) U/L ALT (4-35) U/L Alkaline Phosphatase (40-150) U/L Total Creatine Kinase (41-117) U/L C-Reactive Protein (0.5-1.0) mg/dL Total Protein (6.0-8.3) g/dL Albumin (3.3-5.0) g/dL TSH (0.270-4.200) uIU/mL POC Troponin I 0.00 L (0.01-0.04) ng/ml Imaging Data CT scan - chest: Attestation: I have reviewed the pertinent imaging results. Radiologist's impression: Patient: CLAUDIA KAPOOR Facility:?[facility] Patient ID:?[id number] Site Patient ID:?[id number]. Site :?[id number] Study:?CT Chest Angio w/ 95cc [id number] 2:47:30 PM Ordering Physician:?Ortiz Carpenter Final Report: INDICATION: Chest pain, concern for PE. COMPARISON: Chest radiograph 09/12/2022. CT of the abdomen and pelvis 04/17/2022. TECHNIQUE: CT of the chest with 95 cc of Isovue 370 IV contrast. Coronal and sagittal reconstructions. FINDINGS: Normal heart size. Normal caliber thoracic aorta and central pulmonary arteries. Negative for acute pulmonary embolism. No pericardial effusion. No thoracic lymphadenopathy. The imaged thyroid gland is normal in appearance. No focal consolidation, pleural effusion, or pneumothorax. No pulmonary nodules identified. No central endobronchial lesion or bronchial wall thickening. Cholecystectomy. The visualized upper abdomen is otherwise unremarkable. Chronic minimal anterior wedging of T10 and T11. IMPRESSION: 1. Negative for acute pulmonary embolism. 2. No other acute findings in the chest. Please note that all CT scans at this facility use dose modulation, iterative reconstruction, and/or weight-based dosing when appropriate to reduce radiation dose to as low as reasonably achievable. Dictated by Maryanne Sibley MD @ 11/02/2022 4:29:30 PM ECG Data Attestation: I personally reviewed and interpreted this ECG as follows: (Normal sinus rhythm, 70 beats per minute. Q-waves V1 V2. QT corrected 408 milliseconds.) Prior ECG tracings: available for review (Compared to most recent prior EKG, no significant change.) Critical Care Time Critical Care Time Critical Care Time: No Discharge Plan Discharge Clinical Impression: Chest pain Patient Disposition: Home, Self-Care Condition: Stable Instructions: Chest Pain (ED) Additional Instructions: No evidence of pulmonary emboli on your CT today and D-dimer was normal. I would recommend continuing with the gabapentin, do recommend considering taking the prednisone to see if it does help with the right leg pain. The right leg pain could possibly be from disc issue in the back. Continue to work with clinic to get imaging of your lumbar spine. Please schedule a clinic followup within the next week for ongoing evaluation and review of your current issues. Activity Level: Activity as Tolerated Discharge Diet: Regular Prescriptions: No Action omeprazole 20 mg tablet,delayed release (DR/EC) 20 mg PO QDAY Centrum Women 18-400 mg-mcg tablet 1 tab PO QDAY metoprolol succinate 50 mg tablet extended release 24 hr 50 mg PO QDAY Qty: 90 2RF prednisone 20 mg tablet 40 mg PO QDAY Qty: 10 0RF furosemide 20 mg tablet 20 mg PO QAM PRN (Reason: edema) Qty: 20 1RF Rx Instructions: use for 2-3 days as needed for leg swelling gabapentin 300 mg capsule 300 mg PO TID Qty: 45 0RF Follow Up/Referrals: Akilah Khanna MD [Primary Care Provider] - Stand Alone Forms: [employer] Info Instructions
[2022-11-02 13:41] VITALS: O2SAT 99
--- NOTE | 2022-11-02 13:41 | CRLHL7_ITS ---
For Patients: As a result of the Century Cures Act, medical imaging exams and procedure reports are released immediately into your electronic medical record. You may view this report before your referring provider. If you have questions, please contact your health care provider. INDICATION: Chest pain, concern for PE. COMPARISON: Chest radiograph 09/12/2022. CT of the abdomen and pelvis 04/17/2022. TECHNIQUE: CT of the chest with 95 cc of Isovue 370 IV contrast. Coronal and sagittal reconstructions. FINDINGS: Normal heart size. Normal caliber thoracic aorta and central pulmonary arteries. Negative for acute pulmonary embolism. No pericardial effusion. No thoracic lymphadenopathy. The imaged thyroid gland is normal in appearance. No focal consolidation, pleural effusion, or pneumothorax. No pulmonary nodules identified. No central endobronchial lesion or bronchial wall thickening. Cholecystectomy. The visualized upper abdomen is otherwise unremarkable. Chronic minimal anterior wedging of T10 and T11. IMPRESSION: 1. Negative for acute pulmonary embolism. 2. No other acute findings in the chest. Please note that all CT scans at this facility use dose modulation, iterative reconstruction, and/or weight-based dosing when appropriate to reduce radiation dose to as low as reasonably achievable. Dictated by Maryanne Sibley MD @ 11/02/2022 4:29:30 PM (Electronically Signed)
[2022-11-02 14:34] LABS: Lactate* 1.2 mmol/L (0.5-1.9)
[2022-11-02 14:37] LABS: Basophils Absolute Auto 0.01 K/uL (0.00-0.30); Basophils Percent Auto 0.1 % (0.0-3.0); Eosinophils Absolute Auto 0.13 K/uL (0.00-0.50); Eosinophils Percent Auto 1.7 % (0.0-7.0); Hematocrit 37.1 % (33.0-51.0); Hemoglobin* 11.9 gm/dL (12.0-16.0); Immature Granulocytes Abs Auto 0.07 K/uL (0.00-0.30); Immature Granulocytes Pct Auto 0.9 %; Lymphocytes Absolute Auto 1.68 K/uL (0.90-2.90); Lymphocytes Percent Auto 21.8 % (20-44); Mean Corpuscular HGB Conc 32 gm/dL (32-36); Mean Corpuscular Hemoglobin 28 pg (26-34); Mean Corpuscular Volume 87 fL (80-100); Monocytes Percent Auto 4.5 % (0.0-11.0); Neutrophils Absolute Auto 5.48 K/uL (1.7-7.0); Platelet Count* 329 K/uL (140-440); RDW Coefficient of Variation % 14.7 % (11.5-15.5); Red Blood Count 4.26 m/uL (4.00-5.20); Slide Review Reflex No; White Blood Count* 7.72 K/uL (4.50-11.00)
[2022-11-02 14:54] LABS: Albumin* 4.2 g/dL (3.3-5.0); Chloride* 107 mmol/L (96-114)
[2022-11-02 14:55] LABS: Potassium* 4.2 mmol/L (3.6-5.1); Sodium* 140 mmol/L (135-149)
[2022-11-02 14:57] LABS: Bilirubin Total* 0.5 mg/dL (0.1-1.5); Creatinine* 0.5 mg/dL (0.5-1.5); Est. Creatinine Clearance* 140.01; Estimated Glomerular Filt Rate 122 ml/min
[2022-11-02 14:58] LABS: Alanine Aminotransferase* 19 U/L (4-35); Alkaline Phosphatase* 65 U/L (40-150); Aspartate Amino Transferase* 20 U/L (12-35); Blood Urea Nitrogen* 9 mg/dL (5-24); Calcium* 8.7 mg/dL (8.4-10.6); Carbon Dioxide* 25 mmol/L (20-32); Creatine Kinase* 25 U/L (41-117); Glucose* 87 mg/dL (60-115)
[2022-11-02 14:59] LABS: Magnesium* 1.9 mg/dL (1.5-2.6)
[2022-11-02 15:01] LABS: C Reactive Protein* 0.6 mg/dL (0.5-1.0); D Dimer Quantitative* < 0.27 ug/ml (0.00-0.50)
[2022-11-02 15:36] LABS: Erythrocyte SedimentationRate* 11 mm/hr (2-20)
== END 2022-11-02 16:50 | disposition home or self-care (01) ==
PROVIDERS: Emergency Provider Family Medicine; PCP Internal Medicine
DX: R07.9 Chest pain, unspecified (principal)
CPT/HCPCS: 36415; 71260; 80053; 82550; 83605; 83735; 84443; 84484; 85025; 85379; 85651; 86140; 93005; 94761; 99283; 99284; 99285; Q9967

== ENCOUNTER 2022-11-19 15:39 | Outpatient (CLI) | payer OTHER, SELFPAY ==
[2022-11-19 19:10] LABS: Chloride* 105 mmol/L (96-114); Potassium* 4.4 mmol/L (3.6-5.1); Sodium* 140 mmol/L (135-149)
[2022-11-19 19:12] LABS: Creatinine* 0.5 mg/dL (0.5-1.5); Estimated Glomerular Filt Rate 122 ml/min
[2022-11-19 19:13] LABS: Blood Urea Nitrogen* 12 mg/dL (5-24); Calcium* 9.2 mg/dL (8.4-10.6); Carbon Dioxide* 30 mmol/L (20-32); Creatine Kinase* 40 U/L (41-117); Glucose* 84 mg/dL (60-115)
[2022-11-19 19:14] LABS: Magnesium* 1.9 mg/dL (1.5-2.6)
[2022-11-19 19:30] LABS: Vitamin D 25 Hydroxy* 24 ng/mL (30-80)
[2022-11-19 19:48] LABS: Ferritin* 36.8 ng/mL (6.24-137.0)
== END 2022-11-19 15:40 | disposition home or self-care (01) ==
PROVIDERS: PCP Internal Medicine; Visit Provider Internal Medicine
DX: M62.838 Other muscle spasm (principal); E66.01 Morbid (severe) obesity due to excess calories
CPT/HCPCS: 80048; 82306; 82550; 82728; 83735

== ENCOUNTER 2022-11-22 16:47 | Emergency (ER) | payer OTHER, SELFPAY ==
[2022-11-22 16:52] VITALS: BP 156/96; PULSE 73; TEMP 36.6; O2SAT 100; BMI 51.6
--- NOTE | 2022-11-22 18:35 | ED_ITS ---
HPI - General Adult General Time Seen by Provider: 18:35 <Nasir Ulloa MD - Last Filed: 11/22/22 18:37> Date Seen: 11/22/22 <Nasir Ulloa MD - Last Filed: 11/22/22 18:37> Chief complaint: Chest Pain <Nasir Ulloa MD - Last Filed: 11/22/22 18:37> Stated complaint: Worsening pain in side of chest,shoulder,neck,jaw <Nasir Ulloa MD - Last Filed: 11/22/22 18:37> Time Seen by Provider: 11/22/22 18:30 <Nasir Ulloa MD - Last Filed: 11/22/22 18:37> Source: patient <Nasir Ulloa MD - Last Filed: 11/22/22 18:37> Mode of arrival: ambulatory <Nasir Ulloa MD - Last Filed: 11/22/22 18:37> Limitations: no limitations <Nasir Ulloa MD - Last Filed: 11/22/22 18:37> History of Present Illness HPI narrative: 42-year-old female who comes in with pain of the chest, shoulder, neck, jaw. Review of the chart shows multiple emergency department visits since last summer with various complaints of chest, neck, and jaw pain and multiple negative emergency department cardiac evaluation, multiple negative D-dimers. <Nasir Ulloa MD - Last Filed: 11/22/22 18:37> 42-year-old female who comes in with pain of the chest, shoulder, neck, jaw. Review of the chart shows multiple emergency department visits since last summer with various complaints of chest, neck, and jaw pain and multiple negative emergency department cardiac evaluation, multiple negative D-dimers. <Pauline Alcantar MD - Last Filed: 11/22/22 19:06> Related Data Home medications: Home Medications Medication Instructions Recorded Confirmed multivitamin-ferrous 1 tab PO QDAY 09/13/22 11/19/22 fumarate-folic acid 18 mg-400 mcg tablet (Centrum Women) Previous Rx's Medication Instructions Recorded metoprolol succinate 50 mg 50 mg PO QDAY #90 tabs 10/02/22 tablet,extended release 24 hr <Nasir Ulloa MD - Last Filed: 11/22/22 18:37> Allergies/adverse reactions: Allergies Allergy/AdvReac Type Severity Reaction Status Date / Time erythromycin base Allergy Intermediate Hives Verified 11/19/22 14:45 <Nasir Ulloa MD - Last Filed: 11/22/22 18:37> [facility] Surgical History: Surgical History (Updated 11/19/22 @ 15:25 by Akilah Khanna MD) History of basal cell carcinoma excision History of dilatation and curettage History of foot surgery (07/28/10) History of hand surgery (07/28/10) History of laparoscopic cholecystectomy <Nasir Ulloa MD - Last Filed: 11/22/22 18:37> Social History: Social History Smoking Status: Never smoker Do you use any of these nicotine containing products: None Second hand tobacco smoke exposure: No How often do you have a drink containing alcohol: never How often do you have six or more drinks on one occasion: Never AUDIT-C Alcohol total score: 0 Non-prescribed substance use: denies use Caffeine: Yes Little interest or pleasure in doing things: not at all Feeling down, depressed, or hopeless: several days Are you using contraception or practicing any form of control: No service: No <Nasir Ulloa MD - Last Filed: 11/22/22 18:37> Exam Const: Vital Signs, click to edit/add: Vital Signs - 24 hr 11/22/22 16:52 Temperature 97.9 F Pulse Rate [Pulse Oximeter] 73 Blood Pressure [Ri ght Upper Arm] 156/96 H Pulse Oximetry 100 Oxygen Delivery Me thod Room Air <Nasir Ulloa MD - Last Filed: 11/22/22 18:37> Vital Signs, click to edit/add: Vital Signs - 24 hr 11/22/22 16:52 Temperature 97.9 F Pulse Rate [Pulse Oximeter] 73 Blood Pressure [Ri ght Upper Arm] 156/96 H Pulse Oximetry 100 Oxygen Delivery Me thod Room Air <Pauline Alcantar MD - Last Filed: 11/22/22 19:06> Course Vital Signs Vital signs: Initial Vital Signs Temperature 97.9 F 11/22/22 16:52 Temperature Source Oral 11/22/22 16:52 Pulse Rate 73 11/22/22 16:52 Pulse Rhythm 11/22/22 16:52 Pulse Strength 3+ Normal 11/22/22 16:52 Blood Pressure 156/96 H 11/22/22 16:52 Blood Pressure Mean 116 11/22/22 16:52 Blood Pressure Position Sitting 11/22/22 16:52 Pulse Oximetry 100 11/22/22 16:52 Oxygen Delivery Method 11/22/22 16:52 Vital Signs Temperature 97.9 F 11/22/22 16:52 Pulse Rate 73 11/22/22 16:52 Blood Pressure 156/96 H 11/22/22 16:52 Pulse Oximetry 100 11/22/22 16:52 Oxygen Delivery Method 11/22/22 16:52 Temperature 97.9 F 11/22/22 16:52 Pulse Rate 73 11/22/22 16:52 Blood Pressure 156/96 H 11/22/22 16:52 Pulse Oximetry 100 11/22/22 16:52 Oxygen Delivery Method 11/22/22 16:52 <Nasir Ulloa MD - Last Filed: 11/22/22 18:37> Initial Vital Signs Temperature 97.9 F 11/22/22 16:52 Temperature Source Oral 11/22/22 16:52 Pulse Rate 73 11/22/22 16:52 Pulse Rhythm 11/22/22 16:52 Pulse Strength 3+ Normal 11/22/22 16:52 Blood Pressure 156/96 H 11/22/22 16:52 Blood Pressure Mean 116 11/22/22 16:52 Blood Pressure Position Sitting 11/22/22 16:52 Pulse Oximetry 100 11/22/22 16:52 Oxygen Delivery Method 11/22/22 16:52 Vital Signs Temperature 97.9 F 11/22/22 16:52 Pulse Rate 73 11/22/22 16:52 Blood Pressure 156/96 H 11/22/22 16:52 Pulse Oximetry 100 11/22/22 16:52 Oxygen Delivery Method 11/22/22 16:52 Temperature 97.9 F 11/22/22 16:52 Pulse Rate 73 11/22/22 16:52 Blood Pressure 156/96 H 11/22/22 16:52 Pulse Oximetry 100 11/22/22 16:52 Oxygen Delivery Method 11/22/22 16:52 <Pauline Alcantar MD - Last Filed: 11/22/22 19:06> Discharge Plan Discharge Prescriptions: No Action Centrum Women 18-400 mg-mcg tablet 1 tab PO QDAY metoprolol succinate 50 mg tablet extended release 24 hr 50 mg PO QDAY Qty: 90 2RF <Nasir Ulloa MD - Last Filed: 11/22/22 18:37> Follow Up/Referrals: Akilah Khanna MD [Primary Care Provider] - <Nasir Ulloa MD - Last Filed: 11/22/22 18:37>
--- NOTE | 2022-11-22 19:11 | ED.GENADULT ---
HPI - General Adult General Time Seen by Provider: 16:40 Date Seen: 11/22/22 Chief complaint: Chest Pain Stated complaint: Worsening pain in side of chest,shoulder,neck,jaw Time Seen by Provider: 11/22/22 18:30 Source: patient, RN notes reviewed and old records reviewed Mode of arrival: ambulatory Limitations: no limitations History of Present Illness HPI narrative: This 42-year-old female is coming in with a report of a ?new? problem today. Starting Saturday night she started having left outside breast pain. The pain is becoming so severe that it is hurting to touch the breast. She feels it radiate into her shoulder and her left neck and jaw. The pain does not go into her arm. She has noted no fevers chills. No internal symptoms such as difficulty breathing cardiac symptoms noted. She states she has her 1st mammogram scheduled next week. She is scheduled to have her lumbar MRI tomorrow. She is had multiple episodes of chest pain evaluation prior in the ER. This is different for her tonight. She notes when she was in her teenage years, she had staff infection in this breast that just came out of no where. She is worried as the pain is increasing over the last 2 days. Related Data Home Medications Medication Instructions Recorded Confirmed multivitamin-ferrous 1 tab PO QDAY 09/13/22 11/19/22 fumarate-folic acid 18 mg-400 mcg tablet ([facility]) Previous Rx's Medication Instructions Recorded metoprolol succinate 50 mg 50 mg PO QDAY #90 tabs 10/02/22 tablet,extended release 24 hr Allergies Allergy/AdvReac Type Severity Reaction Status Date / Time erythromycin base Allergy Intermediate Hives Verified 11/19/22 14:45 Review of Systems Status of ROS: Reports: 6 or more systems reviewed and unremarkable except as noted in History and below PFSH PFSH Surgical History History of basal cell carcinoma excision History of dilatation and curettage History of foot surgery (07/28/10) History of hand surgery (07/28/10) History of laparoscopic cholecystectomy Social History Smoking Status: Never smoker Do you use any of these nicotine containing products: None Second hand tobacco smoke exposure: No How often do you have a drink containing alcohol: never How often do you have six or more drinks on one occasion: Never AUDIT-C Alcohol total score: 0 Non-prescribed substance use: denies use Caffeine: Yes Little interest or pleasure in doing things: not at all Feeling down, depressed, or hopeless: several days Are you using contraception or practicing any form of control: No service: No Exam Const: Vital Signs, click to edit/add: Vital Signs - 24 hr 11/22/22 16:52 Temperature 97.9 F Pulse Rate [Pulse Oximeter] 73 Blood Pressure [Ri ght Upper Arm] 156/96 H Pulse Oximetry 100 Oxygen Delivery Me thod Room Air Documenting provider has reviewed patient's vital signs: yes Common normals: no apparent distress, oriented x3, no limitations, healthy appearing, alert and well nourished General appearance: cooperative, comfortable, well kempt and well developed Nutritional appearance: obese HENMT: Common normals: normocephalic, head/scalp atraumatic and hearing grossly normal bilaterally Head and scalp: normocephalic and atraumatic Eye: Common normals: PERRL, EOMs intact bilaterally, conjunctivae normal and no scleral icterus Conjunctiva: conjunctiva(e) normal Pupil: PERRL Neck & C-Spine: Common normals: full ROM, no lymphadenopathy, supple, no meningeal signs, no JVD and thyroid normal Thyroid: thyroid normal Chest: Common normals: inspection of chest normal and inspection of breasts normal Nipple/areola: nipples/areola normal Other: She complains of significant tenderness on palpation along the left outer breast into the left chest wall. Sitting up, palpated in the axilla, fine no masses. She is again tender on that left lateral chest wall and is near tearful when I palpate. She complains of pain when I palpate in the left breast tissue and states it is extremely painful. I absolutely cannot find any palpable mass. There is no drainage from the nipple. There is no overlying skin changes that are abnormal on this breast. Resp: Common normals: normal respiratory effort, no retractions, no use of accessory muscles and clear to auscultation bilaterally Auscultation: clear to auscultation bilaterally Cardio: Common normals: no JVD, regular rate, regular rhythm, S1 normal heart sound, S2 normal heart sound, no gallops, no clicks and no murmurs Rate: regular rate Rhythm: regular rhythm Heart sounds: S1 normal and S2 normal Extremity: Other: Clavicle is nontender on the left side, no pain with range of motion of the glenohumeral joint. She has full range of motion of her C-spine, no facet compression symptoms. I cannot elicit any pain with range of motion of the shoulder or any rotator cuff symptoms on my examination. Neuro: Common normals: oriented x3 Sensorium/orientation: alert Meningeal signs: no meningeal signs Psych: Appearance: well kempt Course Course Hospital Course: Reviewed with patient that we do not do mammograms out of the ER. There is not the capability with the diesel maintenance technician to do them. Did review that we can sometimes do ultrasound imaging but the fact that I feel absolutely no mass in her breast, makes ultrasound infective. Saira the promotional representative was still in house. She did come over to talk to the patient, she did not feel a palpable lump either. She actually had the patient lying down as well with examination and patient's pain corresponded over rib for Saira. Neither of us are feeling a palpable mass at this time I have recommended that we do some baseline blood work, I will included troponin just to ensure that this is not some very aberrant or atypical presentation of cardiac pathology. I do not suspect cardiac issues however. If she were having symptoms for 2 days, would expect that he would see some skin changes if this were an infectious etiology. She may ultimately need a diagnostic mammogram which I cannot provide her at this time. Will have to be something done to the clinic. Do some blood work and see if we have any abnormality with that. Reevaluation(s) Reevaluation #1: Have reviewed labs, reviewed her discussion with the promotional representative. Discussed pain management. She states ibuprofen will be sufficient, it is working fine for her at home. Did make sure that she did not feel she needed anything beyond that. She declined anything stronger. Did recommend alternating Tylenol with the ibuprofen if needed. Time: 21:21 Vital Signs Vital signs: Initial Vital Signs Temperature 97.9 F 11/22/22 16:52 Temperature Source Oral 11/22/22 16:52 Pulse Rate 73 11/22/22 16:52 Pulse Rhythm 11/22/22 16:52 Pulse Strength 3+ Normal 11/22/22 16:52 Blood Pressure 156/96 H 11/22/22 16:52 Blood Pressure Mean 116 11/22/22 16:52 Blood Pressure Position Sitting 11/22/22 16:52 Pulse Oximetry 100 11/22/22 16:52 Oxygen Delivery Method 11/22/22 16:52 Vital Signs Temperature 97.9 F 11/22/22 16:52 Pulse Rate 73 11/22/22 16:52 Blood Pressure 156/96 H 11/22/22 16:52 Pulse Oximetry 100 11/22/22 16:52 Oxygen Delivery Method 11/22/22 16:52 Temperature 97.9 F 11/22/22 16:52 Pulse Rate 73 11/22/22 16:52 Blood Pressure 156/96 H 11/22/22 16:52 Pulse Oximetry 100 11/22/22 16:52 Oxygen Delivery Method 11/22/22 16:52 Medical Decision Making Lab Data Lab results reviewed: Yes I reviewed the patient's lab results Lab results narrative: Reviewed her labs were normal minus a pending sed rate. The C reactive protein being normal, do not feel it is imperative that she wait for that result. Labs: Lab Results 11/22/22 11/22/22 11/22/22 Range/Units 19:35 19:35 19:35 WBC 9.31 (4.50-11.00) K/uL RBC 4.20 (4.00-5.20) m/uL Hgb 11.7 L (12.0-16.0) gm/dL Hct 37.2 (33.0-51.0) % MCV 89 (80-100) fL MCH 28 (26-34) pg MCHC 32 (32-36) gm/dL RDW Coeff of [place]win 14.8 (11.5-15.5) % Plt Count 324 (140-440) K/uL Neut % (Auto) 67.6 (42.0-72.0) % Lymph % (Auto) 25.3 (20-44) % [place] % (Auto) 5.7 (0.0-11.0) % Eos % (Auto) 1.0 (0.0-7.0) % Baso % (Auto) 0.3 (0.0-3.0) % Neut # (Auto) 6.29 (1.7-7.0) K/uL Lymph # (Auto) 2.36 (0.90-2.90) K/uL [place] # (Auto) 0.50 (0.00-0.90) K/UL Eos # (Auto) 0.09 (0.00-0.50) K/uL Baso # (Auto) 0.03 (0.00-0.30) K/uL Sodium 141 (135-149) mmol/L Potassium 4.2 (3.6-5.1) mmol/L Chloride 106 (96-114) mmol/L Carbon Dioxide 28 (20-32) mmol/L BUN 13 (5-24) mg/dL Creatinine 0.6 (0.5-1.5) mg/dL Estimated Creat Clear 116.68 Estimated GFR 116 ml/min Glucose 86 (60-115) mg/dL Lactate (0.5-1.9) mmol/L Calcium 9.3 (8.4-10.6) mg/dL Total Bilirubin 0.4 (0.1-1.5) mg/dL AST 22 (12-35) U/L ALT 20 (4-35) U/L Alkaline Phosphatase 61 (40-150) U/L C-Reactive Protein 0.5 (0.5-1.0) mg/dL NT-Pro-B Natriuret Pep 119 pg/mL Total Protein 7.3 (6.0-8.3) g/dL Albumin 4.4 (3.3-5.0) g/dL POC Troponin I (0.01-0.04) ng/ml 11/22/22 11/22/22 Range/Units 19:35 19:35 WBC (4.50-11.00) K/uL RBC (4.00-5.20) m/uL Hgb (12.0-16.0) gm/dL Hct (33.0-51.0) % MCV (80-100) fL MCH (26-34) pg MCHC (32-36) gm/dL RDW Coeff of [place] (11.5-15.5) % Plt Count (140-440) K/uL Neut % (Auto) (42.0-72.0) % Lymph % (Auto) (20-44) % [place] % (Auto) (0.0-11.0) % Eos % (Auto) (0.0-7.0) % Baso % (Auto) (0.0-3.0) % Neut # (Auto) (1.7-7.0) K/uL Lymph # (Auto) (0.90-2.90) K/uL [place] # (Auto) (0.00-0.90) K/UL Eos # (Auto) (0.00-0.50) K/uL Baso # (Auto) (0.00-0.30) K/uL Sodium (135-149) mmol/L Potassium (3.6-5.1) mmol/L Chloride (96-114) mmol/L Carbon Dioxide (20-32) mmol/L BUN (5-24) mg/dL Creatinine (0.5-1.5) mg/dL Estimated Creat Clear Estimated GFR ml/min Glucose (60-115) mg/dL Lactate 0.7 (0.5-1.9) mmol/L Calcium (8.4-10.6) mg/dL Total Bilirubin (0.1-1.5) mg/dL AST (12-35) U/L ALT (4-35) U/L Alkaline Phosphatase (40-150) U/L C-Reactive Protein (0.5-1.0) mg/dL NT-Pro-B Natriuret Pep pg/mL Total Protein (6.0-8.3) g/dL Albumin (3.3-5.0) g/dL POC Troponin I 0.00 L (0.01-0.04) ng/ml ECG Data Attestation: I personally reviewed and interpreted this ECG as follows: (Sinus rhythm, 74 beats per minute, no ischemia. QT corrected 415 milliseconds.) Critical Care Time Critical Care Time Critical Care Time: No Discharge Plan Discharge Clinical Impression: Breast pain, left Patient Disposition: Home, Self-Care Condition: Stable Additional Instructions: Follow through with getting your mammogram change to a diagnostic mammogram on the left side. This will change the time and the nature of how it is done. Continue with ibuprofen per bottle directions as needed for pain, can add in Tylenol if needed. If you notice fever, notice skin rash or redness of the skin, have increasing pain or new or concerning symptoms with this, please seek re-evaluation. Activity Level: Activity as Tolerated Prescriptions: No Action [facility] 18-400 mg-mcg tablet 1 tab PO QDAY metoprolol succinate 50 mg tablet extended release 24 hr 50 mg PO QDAY Qty: 90 2RF Follow Up/Referrals: Akilah Khanna MD [Primary Care Provider] - Stand Alone Forms: [employer] [facility] Info Instructions
[2022-11-22 19:44] LABS: Lactate* 0.7 mmol/L (0.5-1.9)
[2022-11-22 19:46] LABS: Basophils Absolute Auto 0.03 K/uL (0.00-0.30); Basophils Percent Auto 0.3 % (0.0-3.0); Eosinophils Absolute Auto 0.09 K/uL (0.00-0.50); Hematocrit 37.2 % (33.0-51.0); Hemoglobin* 11.7 gm/dL (12.0-16.0); Immature Granulocytes Abs Auto 0.01 K/uL (0.00-0.30); Immature Granulocytes Pct Auto 0.1 %; Lymphocytes Absolute Auto 2.36 K/uL (0.90-2.90); Lymphocytes Percent Auto 25.3 % (20-44); Mean Corpuscular HGB Conc 32 gm/dL (32-36); Mean Corpuscular Hemoglobin 28 pg (26-34); Mean Corpuscular Volume 89 fL (80-100); Monocytes Percent Auto 5.7 % (0.0-11.0); Neutrophils Absolute Auto 6.29 K/uL (1.7-7.0); Neutrophils Percent Auto 67.6 % (42.0-72.0); Platelet Count* 324 K/uL (140-440); RDW Coefficient of Variation % 14.8 % (11.5-15.5); White Blood Count* 9.31 K/uL (4.50-11.00)
[2022-11-22 19:47] LABS: Slide Review Reflex No
[2022-11-22 20:06] LABS: Albumin* 4.4 g/dL (3.3-5.0); Chloride* 106 mmol/L (96-114); Potassium* 4.2 mmol/L (3.6-5.1); Sodium* 141 mmol/L (135-149)
[2022-11-22 20:09] LABS: Alanine Aminotransferase* 20 U/L (4-35); Alkaline Phosphatase* 61 U/L (40-150); Aspartate Amino Transferase* 22 U/L (12-35); Bilirubin Total* 0.4 mg/dL (0.1-1.5); Blood Urea Nitrogen* 13 mg/dL (5-24); Carbon Dioxide* 28 mmol/L (20-32); Creatinine* 0.6 mg/dL (0.5-1.5); Est. Creatinine Clearance* 116.68; Estimated Glomerular Filt Rate 116 ml/min; Glucose* 86 mg/dL (60-115); Total Protein* 7.3 g/dL (6.0-8.3)
[2022-11-22 20:10] LABS: Calcium* 9.3 mg/dL (8.4-10.6)
[2022-11-22 20:38] LABS: NT Pro B Type NatriureticPept* 119 pg/mL
[2022-11-22 20:51] LABS: C Reactive Protein* 0.5 mg/dL (0.5-1.0)
--- NOTE | 2022-11-22 21:29 | PC.NURSE ---
written and verbal D/C per MD and RN. IV out. Pt ambulate out with steady gait.
[2022-11-22 21:33] LABS: Erythrocyte SedimentationRate* 12 mm/hr (2-20)
== END 2022-11-22 22:05 | disposition home or self-care (01) ==
PROVIDERS: Emergency Provider Family Medicine; PCP Internal Medicine
DX: N64.4 Mastodynia (principal)
CPT/HCPCS: 36415; 80053; 83605; 83880; 84484; 85025; 85651; 86140; 93005; 99284

== ENCOUNTER 2022-11-23 14:24 | Outpatient (CLI) | payer OTHER, SELFPAY ==
--- NOTE | 2022-11-23 14:30 | CRLHL7_ITS ---
For Patients: As a result of the Century Cures Act, medical imaging exams and procedure reports are released immediately into your electronic medical record. You may view this report before your referring provider. If you have questions, please contact your health care provider. INDICATION: Back pain. Right leg pain. TECHNIQUE: Multiplanar multisequence noncontrast MR images acquired through the lumbar spine. COMPARISON: CT abdomen pelvis 04/17/2022. FINDINGS: Mildly exaggerated lumbar lordosis. No acute fracture. No concerning T1 hypointense marrow replacing lesions. Normal conus terminates at L1. T12-L1: Shallow posterior disc bulge. No spinal canal or neural foraminal narrowing. L1-2: No spinal canal or neural foraminal narrowing. L2-3: No spinal canal or neural foraminal narrowing. L3-4: Mild facet arthropathy. No spinal canal or neural foraminal narrowing. L4-5: Grade 1 anterolisthesis measuring 7 mm and chronic bilateral L4 pars defects. Advanced disc degeneration and disc height loss. Moderate vertebral body edema. Posterior disc bulging. [id number] facet arthropathy. No spinal canal narrowing. Severe left greater than right neural foraminal stenosis. L5-S1: Moderately advanced bilateral facet arthropathy. Bilateral facet joint effusions. No spinal canal or neural foraminal narrowing. IMPRESSION: 1. At L4-5, grade 1 anterolisthesis associated with chronic bilateral L4 pars defects. Severe left greater than right neural foraminal stenosis. Advanced disc height loss associated with moderate vertebral body edema. 2. At L5-S1, moderately advanced bilateral facet arthropathy. Dictated by Thad Griffin MD @ 11/23/2022 5:31:48 PM (Electronically Signed)
--- NOTE | 2022-11-23 15:30 | CRLHL7_ITS ---
For Patients: As a result of the Century Cures Act, medical imaging exams and procedure reports are released immediately into your electronic medical record. You may view this report before your referring provider. If you have questions, please contact your health care provider. INDICATION Anterior wedging on CT scan. TECHNIQUE Multiplanar multisequence noncontrast MR images acquired through the thoracic spine. COMPARISON CT chest 11/02/2022. FINDINGS Slight reversal of the thoracic kyphosis centered at the T8 level. The thoracic kyphosis is preserved in the upper and lower thoracic spine. Mild chronic T10 and T11 vertebral body anterior wedging. No acute fracture or spondylolisthesis. No concerning T1 hypointense lesions. The thoracic cord is normal in signal intensity. Multilevel disc degeneration. Multilevel facet arthropathy, up to moderate at T3-4 and T8-9. Minimal endplate edema at T10-11. Small disc protrusions at T2-3, T3-4, T5-6, and T7-8 mildly narrow the spinal canal. Facet arthropathy contributes to mild to moderate neural foraminal narrowing at T8-9. There is no spinal canal or neural foraminal stenosis. IMPRESSION 1. Mild chronic T10 and T11 vertebral body anterior wedging. No acute fracture. 2. Multilevel thoracic spondylosis without spinal canal or neural foraminal stenosis. 3. Small multilevel disc protrusions mildly narrow the spinal canal. 4. Moderate facet arthropathy contributes to [id number] neural foraminal narrowing at T8-9. Dictated by Thad Griffin MD @ 11/23/2022 5:33:10 PM (Electronically Signed)
== END 2022-11-23 14:25 | disposition home or self-care (01) ==
LOC: MRI 14:24
PROVIDERS: PCP Internal Medicine; Visit Provider Internal Medicine
DX: M54.9 Dorsalgia, unspecified (principal); M47.894 Other spondylosis, thoracic region; M51.24 Other intervertebral disc displacement, thoracic region; M79.606 Pain in leg, unspecified
CPT/HCPCS: 72146; 72148

== ENCOUNTER 2022-11-27 09:19 | Outpatient (CLI) | payer OTHER, SELFPAY ==
--- NOTE | 2022-11-27 09:45 | CRLHL7_ITS ---
For Patients: As a result of the Century Cures Act, medical imaging exams and procedure reports are released immediately into your electronic medical record. You may view this report before your referring provider. If you have questions, please contact your health care provider. BILATERAL DIGITAL DIAGNOSTIC MAMMOGRAM WITH COMPUTER-AIDED DETECTION AND TOMOSYNTHESIS, 11/27/2022 CLINICAL HISTORY: LEFT breast pain. COMPARISON: None TECHNIQUE: Digital BILATERAL mammogram in four projections. These mammographic images were interpreted with the benefit of computer-aided detection and tomosynthesis. Real-time ultrasound imaging of LEFT breast with imaging documentation. BREAST COMPOSITION: There are scattered areas of fibroglandular density. FINDINGS: 3D spot-compression CC/MLO mammogram images submitted bilaterally. Normal fibroglandular tissue bilaterally without architectural distortion or suspicious mass. No suspicious calcifications or adenopathy. Targeted LEFT breast ultrasound performed in the area of concern at 3 o`clock, 6-10 cm from the nipple. Normal fibroglandular tissue. No fibrocystic change or mass. IMPRESSION: Normal BILATERAL mammograms and normal targeted LEFT breast ultrasound. No evidence of malignancy. RECOMMENDATIONS: Annual BILATERTAL screening mammography. BI-RADS Category 2: Benign Results and recommendations discussed with the patient. A lay language report of this examination will be provided to the patient. Dictated by Erich David MD @ 11/27/2022 10:31:[address]/Dictated by: Erich David MD @ 11/27/2022 10:31:[address]/Dictated by: Erich David MD @ 11/27/2022 10:31:[address]/Dictated by: Erich David MD @ 11/27/2022 10:31:00 AM (Electronically Signed)
--- NOTE | 2022-11-27 10:15 | CRLHL7_ITS ---
For Patients: As a result of the Century Cures Act, medical imaging exams and procedure reports are released immediately into your electronic medical record. You may view this report before your referring provider. If you have questions, please contact your health care provider. PLEASE SEE BILATERAL DIAGNOSTIC MAMMOGRAM OF SAME DAY FOR COMBINED REPORT. CRL:ari RD/Dictated by: Erich David MD @ 11/27/2022 10:31:00 AM (Electronically Signed)
== END 2022-11-27 09:20 | disposition home or self-care (01) ==
LOC: MAMMO 09:20
PROVIDERS: PCP Internal Medicine; Visit Provider Physician Assistant
DX: N64.4 Mastodynia (principal)
CPT/HCPCS: 76642; 77066; G0279

== ENCOUNTER 2022-11-27 16:30 | Outpatient (RCR) | payer OTHER, SELFPAY | END 2023-05-21 09:56 | disposition home or self-care (01) | PROVIDERS: PCP Internal Medicine; Visit Provider Family Medicine | DX: M54.16 Radiculopathy, lumbar region (principal); M43.16 Spondylolisthesis, lumbar region; M54.50 Low back pain, unspecified; G89.29 Other chronic pain; R26.81 Unsteadiness on feet; M62.81 Muscle weakness (generalized); Z51.89 Encounter for other specified aftercare | CPT/HCPCS: 97110; 97162 ==

== ENCOUNTER 2022-12-14 08:08 | Outpatient (CLI) | payer OTHER, SELFPAY ==
[2022-12-14] MEDS: PERFLUTREN LIPID MICROSPHERES 2 ML VIAL IV (16:55)
== END 2022-12-14 08:09 | disposition home or self-care (01) ==
LOC: RAD 08:08
PROVIDERS: PCP Internal Medicine; Visit Provider Internal Medicine
DX: R01.1 Cardiac murmur, unspecified (principal)
CPT/HCPCS: 93306; Q9957

== ENCOUNTER 2022-12-19 16:14 | Emergency (ER) | payer OTHER, SELFPAY ==
[2022-12-19] VITALS (18 sets, daily range): BP systolic 113–183; BP diastolic 72–102; PULSE 66–82; RESP 16; TEMP 35.6–36.6; O2SAT 97–100; BMI 50.1
--- NOTE | 2022-12-19 17:09 | ED_ITS ---
HPI - Abdominal Pain General Chief Complaint: Abdominal Pain Stated Complaint: Chest Pain Abdominal Pain Time Seen by Provider: 12/19/22 16:36 History of Present Illness HPI narrative: 42-year-old woman presenting to the emergency department with abrupt onset of a throbbing and intense left lower quadrant abdominal pain beginning about 2 hours ago. She has not had any fever. No nausea. No diarrhea and does not believe herself to be constipated. It does not radiate into her back. She is about mid cycle and notes a history of ruptured ovarian cyst on the right side. This may be feels different. She does not have a history of nephrolithiasis nor known diverticulosis. No family history of nephrolithiasis. No dysuria frequency urgency. No hematuria. Incidentally does have recurrence of intermittent left- sided chest pain for which she notes has had extensive evaluation. I do see recurrent visits to the emergency department for that. That is not really the reason for her visit as far as I can determine. She is not short of breath this time. Says she has checked for rashes and has none. Related Data Home Medications Medication Instructions Recorded Confirmed multivitamin-ferrous 1 tab PO QDAY 09/13/22 12/20/22 fumarate-folic acid 18 mg-400 mcg tablet (Centrum Women) Previous Rx's Medication Instructions Recorded metoprolol succinate 50 mg 50 mg PO QDAY #90 tabs 10/02/22 tablet,extended release 24 hr Allergies Allergy/AdvReac Type Severity Reaction Status Date / Time erythromycin base Allergy Intermediate Hives Verified 12/20/22 10:03 Review of Systems Status of ROS Reports: 10 or more systems reviewed and unremarkable except as noted in History and below PFSH PFS Surgical History History of basal cell carcinoma excision History of dilatation and curettage History of foot surgery (07/28/10) History of hand surgery (07/28/10) History of laparoscopic cholecystectomy Family History Paternal Grandmother Heart disease Sister Colon cancer Maternal Grandmother Breast cancer Mother High blood pressure High cholesterol Father High blood pressure High cholesterol 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 . 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 No alcohol use. Smoking Status: Never smoker Do you use any of these nicotine containing products: None Second hand tobacco smoke exposure: No How often do you have a drink containing alcohol: never How often do you have six or more drinks on one occasion: Never AUDIT-C Alcohol total score: 0 Non-prescribed substance use: denies use Caffeine: Yes Little interest or pleasure in doing things: not at all Feeling down, depressed, or hopeless: several days Are you using contraception or practicing any form of control: No service: No Exam Narrative: Exam Narrative: Pleasant. NAD. Skin is warm and dry. Breathing easily. Conversing easily. Skin is warm and dry. Well perfused no edema. Equal expansion excursion of chest. Heart with a regular rate and rhythm no murmur rub or gallop identified. Abdomen is overweight soft. No masses. She is [id number] tender to deep palpation in the left lower quadrant to adnexal area. No clear flank pain. Const: Vital Signs, click to edit/add: Vital Signs - 24 hr 12/19/22 16:26 Temperature 96.0 F L Pulse Rate [Pulse Oximeter] 79 Respiratory Rate 16 Blood Pressure [Ri t Upper Arm] 174/102 H Pulse Oximetry 98 Oxygen Delivery Me thod Room Air Documenting provider has reviewed patient's vital signs: yes Course Vital Signs Vital signs: Initial Vital Signs Temperature 96.0 F L 12/19/22 16:26 Temperature Source Temporal Artery Scan 12/19/22 16:26 Pulse Rate 79 12/19/22 16:26 Pulse Rhythm 12/19/22 16:26 Pulse Strength 3+ Normal 12/19/22 16:26 Respiratory Rate 16 12/19/22 16:26 Blood Pressure 174/102 H 12/19/22 16:26 Blood Pressure Mean 126 12/19/22 16:26 Blood Pressure Position Semi-Fowlers 12/19/22 16:26 Pulse Oximetry 98 12/19/22 16:26 Oxygen Delivery Method 12/19/22 16:26 Vital Signs Temperature 96.0 F L 12/19/22 16:26 Pulse Rate 79 12/19/22 16:26 Respiratory Rate 16 12/19/22 16:26 Blood Pressure 174/102 H 12/19/22 16:26 Pulse Oximetry 98 12/19/22 16:26 Oxygen Delivery Method 12/19/22 16:26 Temperature 97.8 F 12/19/22 19:27 Pulse Rate 71 12/19/22 19:32 Respiratory Rate 16 12/19/22 19:27 Blood Pressure 178/98 H 12/19/22 19:32 Pulse Oximetry 97 12/19/22 19:32 Oxygen Delivery Method 12/19/22 19:27 MDM - Abdominal Pain MDM Narrative Medical decision making narrative: Differential includes constipation, above look appendagitis, mesenteric adenitis, diverticulitis, urinary tract infection, ovarian cyst or torsion though less likely given not in tremendous discomfort. Will collect labs and if elevated inflammatory markers or white count moving towards abdominal imaging otherwise anticipate ultrasound; tech has been given heads up. us unremarkable in the setting of essentially normal/reassuring labs. discussed with technologist. discussed potential CT abd imaging. offered but I think also safe to wait and see over next 24 - 48 hours as to how doing. repeat exam still photographer to deep palpation in left lower to mid abd. labs less supportive of diverticulitis. also reviewed old CT imaging without evidence/mention of diverticular disease. and while small microscopic blood in urine, clinical story and exam atypical for stone and neither do i appreciate stone burden on review of old abd cts. other differential not really necessary with which to intervene nor emergent/dangerous. unclear etiology to pain. Medical Records Attestation: I reviewed the patient's medical records. Lab Data Attestation: I reviewed the patient's lab results. Labs: Lab Results 12/19/22 12/19/22 12/19/22 Range/Units 16:47 16:47 16:47 WBC 8.08 (4.50-11.00) K/uL RBC 3.98 L (4.00-5.20) m/uL Hgb 11.1 L (12.0-16.0) gm/dL Hct 35.0 (33.0-51.0) % MCV 88 (80-100) fL MCH 28 (26-34) pg MCHC 32 (32-36) gm/dL RDW Coeff of Erwin 14.6 (11.5-15.5) % Plt Count 341 (140-440) K/uL Neut % (Auto) 71.5 (42.0-72.0) % Lymph % (Auto) 23.1 (20-44) % Harris % (Auto) 4.1 (0.0-11.0) % Eos % (Auto) 1.0 (0.0-7.0) % Baso % (Auto) 0.1 (0.0-3.0) % Neut # (Auto) 5.77 (1.7-7.0) K/uL Lymph # (Auto) 1.87 (0.90-2.90) K/uL Harris # (Auto) 0.30 (0.00-0.90) K/UL Eos # (Auto) 0.08 (0.00-0.50) K/uL Baso # (Auto) 0.01 (0.00-0.30) K/uL Sodium 140 (135-149) mmol/L Potassium 3.8 (3.6-5.1) mmol/L Chloride 108 (96-114) mmol/L Carbon Dioxide 26 (20-32) mmol/L BUN 8 (5-24) mg/dL Creatinine 0.5 (0.5-1.5) mg/dL Estimated Creat Clear 140.01 Estimated GFR 122 ml/min Glucose 105 (60-115) mg/dL Calcium 8.6 (8.4-10.6) mg/dL C-Reactive Protein 0.7 (0.5-1.0) mg/dL HCG, Qual Negative (Negative) Urine Color Yellow (Yellow) Urine Appearance Clear (Clear) Urine pH 7.0 (5.0-8.5) Ur Specific Sunbright 1.015 (1.000-1.030) Urine Protein Negative (Negative) Urine Glucose (UA) Negative (Negative) Urine Ketones Negative (Negative) Urine Blood Negative (Negative) Urine Nitrite Negative (Negative) Urine Bilirubin Negative (Negative) Urine Urobilinogen 0.2 (0.2-1.0) Ur Leukocyte Esterase Negative (Negative) Urine RBC 2-5 A (0-2) Urine WBC 0-2 (0-5) Ur Squamous Epith Cells Few (None-Few) Urine Bacteria Few A (None) ECG Data Attestation: I personally reviewed and interpreted this ECG as follows: (Normal sinus rate of 72) Discharge Plan Discharge Clinical Impression: Abdominal pain Patient Disposition: Home, Self-Care Condition: Stable Instructions: Abdominal Pain (ED) Additional Instructions: As I said we have not ruled out a number of things including abdominal wall hernia, epiploic appendagitis, mesenteric adenitis, ureteral stone, diverticulitis. Labs are overall reassuring. There is a small amount of blood in your urine on microscopic analysis that I am not sure what to make of at this time. I think as long as you do not have any fever, you're not vomiting repeatedly, pain isn't getting out of control, it is okay to wait a couple of days to see where it is going. If pain is still present at current level at that time I would follow-up likely for CT imaging. In the meantime can take ibuprofen or acetaminophen for pain. Focus on hydration. Prescriptions: No Action Centrum Women 18-400 mg-mcg tablet 1 tab PO QDAY metoprolol succinate 50 mg tablet extended release 24 hr 50 mg PO QDAY Qty: 90 2RF Follow Up/Referrals: Akilah Khanna MD [Primary Care Provider] - Stand Alone Forms: [employer] Info Instructions
[2022-12-19 17:20] LABS: Basophils Absolute Auto 0.01 K/uL (0.00-0.30); Basophils Percent Auto 0.1 % (0.0-3.0); Eosinophils Absolute Auto 0.08 K/uL (0.00-0.50); Hemoglobin* 11.1 gm/dL (12.0-16.0); Immature Granulocytes Abs Auto 0.02 K/uL (0.00-0.30); Immature Granulocytes Pct Auto 0.2 %; Lymphocytes Absolute Auto 1.87 K/uL (0.90-2.90); Lymphocytes Percent Auto 23.1 % (20-44); Mean Corpuscular HGB Conc 32 gm/dL (32-36); Mean Corpuscular Hemoglobin 28 pg (26-34); Mean Corpuscular Volume 88 fL (80-100); Monocytes Percent Auto 4.1 % (0.0-11.0); Neutrophils Absolute Auto 5.77 K/uL (1.7-7.0); Neutrophils Percent Auto 71.5 % (42.0-72.0); Platelet Count* 341 K/uL (140-440); RDW Coefficient of Variation % 14.6 % (11.5-15.5); Red Blood Count 3.98 m/uL (4.00-5.20); White Blood Count* 8.08 K/uL (4.50-11.00)
[2022-12-19 17:25] LABS: Slide Review Reflex No
[2022-12-19 17:39] LABS: HCG Qualitative* Negative (Negative)
[2022-12-19 17:40] LABS: Chloride* 108 mmol/L (96-114); Potassium* 3.8 mmol/L (3.6-5.1); Sodium* 140 mmol/L (135-149)
--- NOTE | 2022-12-19 17:40 | CRLHL7_ITS ---
For Patients: As a result of the Cures Act, medical imaging exams and procedure reports are released immediately into your electronic medical record. You may view this report before your referring provider. If you have questions, please contact your health care provider. INDICATION: Left lower quadrant pain. TECHNIQUE: Ultrasound pelvis transabdominal and transvaginal for better assessment or to better visualize the endometrium. Real-time sonographic images with spectral and color Doppler imaging of the ovaries were obtained. COMPARISON: None. FINDINGS: Uterus: 9.7 x 4.6 x 6.2 cm. Normal echotexture of the myometrium. No masses. Few nabothian cysts. Endometrium: Transvaginal imaging was performed to better evaluate the endometrium. Endometrial thickness measures 11 mm. No sign of endometrial mass or fluid. Right ovary 3.3 x 2.2 x 2.6 centimeters. Left ovary 3.3 x 2.2 x 2.1 centimeters. No ovarian or adnexal masses. Normal arterial and venous blood flow is demonstrated in both ovaries. Cul-de-sac: No significant free fluid. IMPRESSION: Normal uterus and endometrium for age. Normal ovaries for age. Dictated by Dalton De La Cruz MD @ 12/19/2022 7:14:47 PM (Electronically Signed)
[2022-12-19 17:43] LABS: Creatinine* 0.5 mg/dL (0.5-1.5); Est. Creatinine Clearance* 140.01; Estimated Glomerular Filt Rate 122 ml/min
[2022-12-19 17:44] LABS: Blood Urea Nitrogen* 8 mg/dL (5-24); Calcium* 8.6 mg/dL (8.4-10.6); Carbon Dioxide* 26 mmol/L (20-32); Glucose* 105 mg/dL (60-115)
[2022-12-19 17:46] LABS: C Reactive Protein* 0.7 mg/dL (0.5-1.0)
[2022-12-19 19:03] LABS: Appearance Urine Clear (Clear); Bilirubin Urine Negative (Negative); Blood Urine Negative (Negative); Color Urine Yellow (Yellow); Glucose Urine Negative (Negative); Ketones Urine Negative (Negative); Leukocyte Esterase Urine Negative (Negative); Nitrite Urine Negative (Negative); Protein Urine Negative (Negative); Specific Gravity Urine 1.015 (1.000-1.030); Urobilinogen Urine 0.2 (0.2-1.0)
[2022-12-19 19:19] LABS: Bacteria Urine Few; Squamous Epithelial Cell Urine Few (None-Few); WBC Urine 0-2 (0-5)
--- NOTE | 2022-12-19 19:28 | PC.NURSE ---
pt talking with physician re: blood work and ultrasound results. pt rates pain 3/10. discussing plan of care.
== END 2022-12-19 19:45 | disposition home or self-care (01) ==
PROVIDERS: Emergency Provider Family Medicine; PCP Internal Medicine
DX: R10.9 Unspecified abdominal pain (principal)
CPT/HCPCS: 36415; 76830; 80048; 81001; 84703; 85025; 86140; 87086; 93976; 99284; 99285

== ENCOUNTER 2022-12-25 14:39 | Outpatient (CLI) | payer OTHER, SELFPAY ==
[2022-12-25 17:29] LABS: Cholesterol* 164 mg/dL (90-199)
[2022-12-25 17:30] LABS: HDL Cholesterol* 42 mg/dL (>=50); LDL Cholesterol Calculated 93 mg/dL (<100); Triglycerides* 147 mg/dL (40-149)
[2022-12-25 17:46] LABS: D Dimer Quantitative* 0.27 ug/ml (0.00-0.50)
[2022-12-25 23:53] LABS: Troponin I* < 0.01 ng/mL (0.01-0.04)
== END 2022-12-25 14:40 | disposition home or self-care (01) ==
PROVIDERS: PCP Internal Medicine; Visit Provider Internal Medicine
DX: I10 Essential (primary) hypertension (principal); R07.9 Chest pain, unspecified; E66.01 Morbid (severe) obesity due to excess calories
CPT/HCPCS: 80061; 84484; 85379

== ENCOUNTER 2023-01-17 06:38 | Day surgery (SDC) | payer OTHER, SELFPAY ==
--- NOTE | 2023-01-17 07:07 | W.ANESCHARGE ---
Anesthesia Charges Start Date/Time Anesthesia Start Date: 01/17/23 Anesthesia Start Time: 07:56 Stop Date/Time Anesthesia Stop Date: 01/17/23 Anesthesia Stop Time: 08:51
[2023-01-17] MEDS: LACTATED RINGERS 1000 ML 1,000 ML 100 ML IV (07:15)
[2023-01-17] MEDS: SODIUM CHLORIDE 0.9 % (FLUSH) 10 ML SYRINGE IVF (07:15)
[2023-01-17 07:16] VITALS: BP 133/54; PULSE 82; RESP 20; TEMP 36.6; O2SAT 98; BMI 51.1
--- NOTE | 2023-01-17 07:26 | SUR.PREOP ---
Patient provided home covid negative results to RN.
[2023-01-17 07:43] LABS: Hemoglobin* 11.4 gm/dL (12.0-16.0)
[2023-01-17] MEDS: SILVER NITRATE APPLICATOR 1 EACH STICK..EA. TOPICAL (08:35)
--- NOTE | 2023-01-17 08:39 | SUR.OPER ---
DECEIT WAS 60 ML
[2023-01-17 08:48] VITALS: BP 140/86; PULSE 62; RESP 16; TEMP 36.3; O2SAT 95
--- NOTE | 2023-01-17 08:50 | W.PM.GYNPROC ---
Procedure Note Time Seen by Provider: 08:50 Date Seen: 01/17/23 Procedure Details: Preoperative diagnosis: 42 yo with menorrhagia like 2/2 to adenomysosis. Postoperative diagnosis: Same. Procedure: Hysteroscopy and endometrial ablation. Anesthesia: Mac and paracervical block. Surgeon: Afsaneh Stoll Assist: None Estimated blood loss: <5 mL IV Fluid: 900 mL Specimen: None Fluid deficit: 60 cc UOP: 80 cc Findings: On exam under anesthesia: The cervix and vagina appear normal. The uterus was anterior position, approximately 7 week size, mobile and without masses or nodularity palpable. Adnexa were without mass or fullness palpable bilaterally. On hysteroscopy after procedure: uterine cavity intact and ablated. No other abnormalities noted. The uterus sounded to 9 cm. Cervical length 3.5 cm. Cavity length: 5.5. Procedure: Nanette was taken to the operating room where conscious sedation was found to be adequate. She was placed in a dorsal lithotomy position and an exam under anesthesia was performed with the findings stated above. She was then prepped and draped in a normal sterile manner. An a bivalve is sterile speculum was placed in the vaginal canal. A paracervical block was placed using 1% lidocaine with epi: 10 mL were injected at the 12, 4 and 8 o'clock positions on the cervix. A long tenaculum clamp was placed on the anterior lip of the cervix. Uterus sounded to 9 cm. The cervix measured 3.5 cm. There for the cavity length was 5.5 cm. Uterine and cervical measurements were then performed with uterine sound, with findings as noted above. Cervix was serially dilated to accommodate the Kayla handheld device. The cervix was then dilated to Hegar 8. The device was then powered on. The hand-held device was inserted through the cervix and the array was deployed. Appropriate uterine width was noted. The intracervical balloon was then inflated. The pedal was pushed to activate to the cavity integrity test, both of which were passed. The ablation cycle then ensued. Thereafter, the intracervical balloon was deflated, and the device was retracted from the uterus. Truclear hysteroscope was inserted, confirming ablation of the endometrium. Hysteroscope was removed. Tenaculum clamp removed from the anterior lip of the cervix. Silver nitrate sticks were used to obtain hemostasis The patient tolerated this procedure well. Sponge, lap and instrument counts were correct x2 at the end of the procedure and the patient was taken to the recovery area in stable condition.
[2023-01-17] MEDS: fentaNYL 100 MCG/2 ML inj 50 MCG IVP ×2 (08:59→09:06)
[2023-01-17 09:00] VITALS: BP 155/95; PULSE 66; RESP 16; O2SAT 95
[2023-01-17] MEDS: IBUPROFEN 600 MG TABLET PO (09:10)
[2023-01-17 09:15] VITALS: BP 134/75; PULSE 48; RESP 16; O2SAT 93
--- NOTE | 2023-01-17 09:17 | W.ANESCHARGE ---
Anesthesia Charges Start Date/Time Anesthesia Start Date: 01/17/23 Anesthesia Start Time: 07:56 Stop Date/Time Anesthesia Stop Date: 01/17/23 Anesthesia Stop Time: 08:51
[2023-01-17 09:30] VITALS: BP 121/77; PULSE 43; RESP 16; O2SAT 100
[2023-01-17] MEDS: ONDANSETRON 2 MG/ML inj 4 MG IVP (09:35)
[2023-01-17 09:45] VITALS: BP 127/85; PULSE 52; RESP 16; O2SAT 99
--- NOTE | 2023-01-17 10:23 | SUR.PHASEII ---
patient & educated on post op pain management due to cramping. patient appreciative & receptive to education, patient spouse verbalizing frustration - reassurance given.
== END 2023-01-17 10:32 | disposition home or self-care (01) ==
PROVIDERS: PCP Internal Medicine; Visit Provider Obstetrics & Gynecology
PROC: 0U5B8ZZ Destruction of Endometrium, Via Natural or Artificial Opening Endoscopic (ICD-10-PCS; CPT 58558; principal; 2023-01-17 07:45)
DX: N92.0 Excessive and frequent menstruation with regular cycle (principal)
CPT/HCPCS: 58563; 00952; 36415; 81025; 85018; A9270; J1100; J2250; J2405; J2704; J3010; J3490; J7120

== ENCOUNTER 2023-03-11 20:55 | Outpatient (CLI) | payer OTHER, SELFPAY | END 2023-03-11 20:56 | disposition home or self-care (01) | LOC: SLEEP 20:56 | PROVIDERS: PCP Internal Medicine; Visit Provider Internal Medicine | DX: G47.33 Obstructive sleep apnea (adult) (pediatric) (principal); E66.01 Morbid (severe) obesity due to excess calories; Z68.43 Body mass index [BMI] 50.0-59.9, adult | CPT/HCPCS: 95810 ==

== ENCOUNTER 2023-04-23 20:59 | Outpatient (CLI) | payer OTHER, SELFPAY | END 2023-04-23 21:00 | disposition home or self-care (01) | LOC: SLEEP 20:59 | PROVIDERS: PCP Internal Medicine; Visit Provider Internal Medicine | DX: G47.33 Obstructive sleep apnea (adult) (pediatric) (principal); E66.9 Obesity, unspecified | CPT/HCPCS: 95811; A9270 ==

== ENCOUNTER 2024-01-02 08:17 | Emergency (ER) | payer OTHER, SELFPAY ==
[2024-01-02 08:25] VITALS: BP 138/94; PULSE 72; RESP 18; TEMP 35.9; O2SAT 98; BMI 54.6
--- NOTE | 2024-01-02 08:25 | ED_ITS ---
HPI - General Adult General Time Seen by Provider: 08:26 Date Seen: 01/02/24 Chief complaint: Unspecified Complaint, Adult Stated complaint: Hemorrhoid Time Seen by Provider: 01/02/24 08:18 Source: patient, RN notes reviewed and old records reviewed Mode of arrival: ambulatory Limitations: no limitations Related Data Home Medications Medication Instructions Recorded Confirmed multivitamin-ferrous 1 tab PO QDAY 09/13/22 12/31/23 fumarate-folic acid 18 mg-400 mcg tablet (Centrum Women) sertraline 100 mg tablet 100 mg PO DAILY 07/04/23 12/31/23 Previous Rx's Medication Instructions Recorded metoprolol succinate 50 mg 50 mg PO QDAY #90 tabs 07/22/23 tablet,extended release 24 hr lidocaine 5 % topical ointment 1 applic topical TID PRN anal 12/11/23 fissure #30 grams prednisone 20 mg tablet 20 mg PO QDAY #7 tabs 12/19/23 albuterol sulfate 90 mcg/actuation 2 inh inhalation Q6-8H PRN 12/31/23 aerosol inhaler (ProAir HFA) shortness of breath or wheezing #6.7 grams belladonna alkaloids-opium 16.2 1 supp UT DAILY PRN pain #4 ea 01/02/24 mg-30 mg rectal suppository hydrocortisone 2.5 % topical cream 1 applic topical TID PRN #30 grams 01/02/24 oxycodone 5 mg capsule 5 mg PO Q6H PRN pain #8 caps 01/02/24 oxycodone 5 mg capsule 5 mg PO Q6H PRN pain #8 caps 01/02/24 Allergies Allergy/AdvReac Type Severity Reaction Status Date / Time erythromycin base Allergy Intermediate Hives Verified 12/31/23 10:50 PFSH PFS Medical History History of sleep study ?Z92.89 - Personal history of other medical treatment (ICD-10) Surgical History History of endometrial ablation (01/17/23) ?Z98.890 - Other specified postprocedural states (ICD-10) History of dilatation and curettage ?Z98.890 - Other specified postprocedural states (ICD-10) History of basal cell carcinoma excision ?Z98.890 - Other specified postprocedural states (ICD-10) ?Z85.828 - Personal history of other malignant neoplasm of skin (ICD-10) History of laparoscopic cholecystectomy (03/11/14) ?Z90.49 - Acquired absence of other specified parts of digestive tract (ICD- 10) History of hand surgery (07/28/10) ?Z98.890 - Other specified postprocedural states (ICD-10) History of foot surgery (07/28/10) ?Z98.890 - Other specified postprocedural states (ICD-10) Family History Paternal Grandmother Heart disease Sister Colon cancer Thyroid disease Anxiety Depression Maternal Grandmother Breast cancer Mother High blood pressure High cholesterol Arthritis Colon polyps Depression DARLINE (obstructive sleep apnea) Anxiety Father High blood pressure High cholesterol DARLINE (obstructive sleep apnea) Arthritis Addictive gambling 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 Smoking Status: Never smoker Do you use any of these nicotine containing products: None Second hand tobacco smoke exposure: No How often do you have a drink containing alcohol: never How often do you have six or more drinks on one occasion: Never AUDIT-C Alcohol total score: 0 Non-prescribed substance use: denies use Caffeine: Yes Little interest or pleasure in doing things: not at all Feeling down, depressed, or hopeless: not at all Are you using contraception or practicing any form of control: No service: No Exam Narrative: Exam Narrative: General: well nourished , NAD Head: Atraumatic and normocephalic ENT: External ears and external nose are normal Eyes: Conjunctiva clear, pupils are equal reactive, external ocular motions are intact Neck: Full spontaneous range of motion of the neck Lungs: No respiratory distress Musculoskeletal: No tenderness or deformity Neurologic: No gross focal neurologic deficits Skin: No rashes Psych: Mood and affect are appropriate Rectal: Hemorrhoid the posterior left perirectal area which is tender in little bit purplish discolored but not firm with additional hemorrhoidal tissue on the right posterior. Const: Vital Signs, click to edit/add: Vital Signs - 24 hr 01/02/24 08:25 Temperature 96.7 F L Pulse Rate [Pulse Oximeter] 72 Respiratory Rate 18 Blood Pressure [Ri ght Upper Arm] 138/94 H Pulse Oximetry 98 Oxygen Delivery Me thod Room Air Course Course ED Course: Patient seen and examined, reviewed prior general surgery note for arm December 11 when patient was seen for hemorrhoid noted at that time had an anal fissure with no evidence for internal hemorrhoids, had a tender and edematous external hemorrhoid at that time with recommendation for possible hemorrhoidectomy in need for colonoscopy. Patient presents today with perirectal pain starting yesterday. She has been using hemorrhoid suppositories and looks like she has lidocaine 5% for an anal fissure. On exam here, she has hemorrhoids and some memory dull tissue, no perianal or perirectal induration or redness to suggest perirectal abscess. Will switch patient to hydrocortisone cream temporarily due to increased pain and discharged with oxycodone #8 to use for pain. Will also prescribe B and O suppository for help with associated spasm. Vital Signs Vital signs: Initial Vital Signs Temperature 96.7 F L 01/02/24 08:25 Temperature Source Temporal Artery Scan 01/02/24 08:25 Pulse Rate 72 01/02/24 08:25 Pulse Rhythm Regular 01/02/24 08:25 Respiratory Rate 18 01/02/24 08:25 Blood Pressure 138/94 H 01/02/24 08:25 Blood Pressure Mean 108 H 01/02/24 08:25 Blood Pressure Position Sitting 01/02/24 08:25 Pulse Oximetry 98 01/02/24 08:25 Oxygen Delivery Method Room Air 01/02/24 08:25 Vital Signs Temperature 96.7 F L 01/02/24 08:25 Pulse Rate 72 01/02/24 08:25 Respiratory Rate 18 01/02/24 08:25 Blood Pressure 138/94 H 01/02/24 08:25 Pulse Oximetry 98 01/02/24 08:25 Oxygen Delivery Method Room Air 01/02/24 08:25 Temperature 96.7 F L 01/02/24 08:25 Pulse Rate 72 01/02/24 08:25 Respiratory Rate 18 01/02/24 08:25 Blood Pressure 138/94 H 01/02/24 08:25 Pulse Oximetry 98 01/02/24 08:25 Oxygen Delivery Method Room Air 01/02/24 08:25 Discharge Plan Discharge Clinical Impression: External bleeding hemorrhoids, Anal or rectal pain Patient Disposition: Home, Self-Care Condition: Stable Instructions: Hemorrhoids (ED), Rectal Pain (ED) Additional Instructions: Start hydrocortisone cream in place of suppository short-term Use B and O suppository or oxycodone for pain Follow-up with general surgery Activity Level: No strenuous activity Discharge Diet: Regular Prescriptions: New belladonna alkaloids-opium 16.2-30 mg suppository 1 supp UT DAILY PRN (Reason: pain) Qty: 4 0RF oxycodone 5 mg capsule 5 mg PO Q6H PRN (Reason: pain) Qty: 8 0RF hydrocortisone 2.5 % cream 1 applic topical TID PRNQty: 30 0RF oxycodone 5 mg capsule 5 mg PO Q6H PRN (Reason: pain) Qty: 8 0RF No Action Centrum Women 18-400 mg-mcg tablet 1 tab PO QDAY lidocaine 5 % ointment 1 applic topical TID PRN (Reason: anal fissure) Qty: 30 1RF prednisone 20 mg tablet 20 mg PO QDAY Qty: 7 0RF sertraline 100 mg tablet 100 mg PO DAILY albuterol sulfate [ProAir HFA] 90 mcg/actuation HFA aerosol inhaler 2 inh inhalation Q6-8H PRN (Reason: shortness of breath or wheezing) Qty: 6.7 0RF metoprolol succinate 50 mg tablet extended release 24 hr 50 mg PO QDAY Qty: 90 3RF Follow Up/Referrals: Akilah Khanna MD [Primary Care Provider] - Stand Alone Forms: [facility] Info Instructions
== END 2024-01-02 09:34 | disposition home or self-care (01) ==
LOC: ED 09:11
PROVIDERS: Emergency Provider Family Medicine; PCP Internal Medicine
DX: K64.4 Residual hemorrhoidal skin tags (principal); K62.89 Other specified diseases of anus and rectum
CPT/HCPCS: 99283; 99284

== ENCOUNTER 2024-04-14 15:10 | Outpatient (CLI) | payer OTHER, SELFPAY ==
--- OUTSIDE RECORDS SUMMARY | 2024-04-14 15:12 | XMS_ITS | Clinical Summary ---
Author Organization [facility] Address [address] [place] [address] Care Team Providers Care Family Mediator Name Role Phone Elsewhere, Pcp Primary Care Provider Unavailabl e Source Comments Patient records contain information from all sites at [facility]. For routine questions regarding patient records, call [phone] during business hours, M-F 8:00 AM - 5:00 PM Central Time. Record requests for emergency care only can be directed to [phone] at any time.[facility] Allergies Active Allergy Reactions Criticality Noted Date Comments Erythromycin Hives (Reselect Reaction) 12/16/19 08 Erythromycin Lactobionate Hives (Reselect Reaction) 12/28/2015 Medications Medication Sig Dispensed Refills Start Date End Date Status metoprolol succinate (TOPROL-XL) 50 mg 24 hr tablet Take 50 mg by mouth daily. Do not crush or chew. Active multivitamin/iron/fol ic acid (CENTRUM ULTRA WOMEN'S ORAL) Take 1 tablet by mouth daily. Active sertraline (ZOLOFT) 100 mg tablet take 1 tablet by mouth every day 30 tablet 2 01/16/2024 Active Active Problems Problem Noted Date Diagnosed Date Depressive Disorder 09/09/2023 Gastroesophageal Reflux Disease NOS 09/09/2023 Hypertension NOS 09/09/2023 Pain Low Back Chronic 09/09/2023 Other Specified Health Status 09/09/2023 Morbid Obesity Body Mass Index 45.0-49.9 Adult 1 Obstructive Sleep Apnea Adult 09/09/2023 Immunizations Name Administration Dates Next Due 4vHPV (discontinued) 09/16/2009,05/10/2009,03/04 H1N1 Nasal 08/31/2009 HepB Adult 11/16/2022(Deferred: Other - Pt up to date) Influenza (IM) Preservative Free 013,08/06/2012,08/13/2011,2009 Influenza Split Preservative Free ID 08/13/2016 Influenza TIV (IM) 09/08/2014 Influenza, Injectable, Mdck, Preservative Free, Quadrivalent 07/25/2022 Influenza, Seasonal, Injectable 09/08/2014 Tdap 07/17/2013,03/04/2009 influenza vaccine quad (FLUZONE/FLUARIX) (6 months and older)(PF) 08/11/2021,09/19/2020,08/24/2019,2017,08/21/2017,08/17/2015,08/31/2009 Family History Medical History Relation Name Comments Arthritis Father Jero Hyperlipidemia Father Jero Obesity Father Jero Sleep apnea Father Jero Arthritis Mother Ramila Colon polyps Mother Ramila Depression Mother Ramila Hypertension Mother Ramila Obesity Mother Ramila Sleep apnea Mother Ramila Obesity Sister Shavonne Other cancer Sister Shavonne Carcinoid cance r (colon, lymph nodes) Thyroid disease Sister Shavonne Relation Name Status Comments Father Jero Mother Ramila Sister Shavonne Social History Tobacco Use Types Packs/Day Years Used Date Smoking Tobacco: Never Passive Smoke Exposure: Past Smokeless Tobacco: Never Tobacco Cessation:Counseling Given: Not Answered Alcohol Use Standard Drinks/Week Comments Never 0 (1 standard drink = 0.6 oz pur e alcohol) Humiliation, Afraid, Rape, and Kick questionnair e Answer Date Recorded Within the last year, have y ou been afraid of your partner or ex-partner? No 01/10/2023 Within the last year, have y ou been humiliated or emotionally abused in other ways by your partner or ex-partner? Patient declined 01/10/2023 Within the last year, have y ou been kicked, hit, slapped, or otherwise physically hurt by your partner or ex-partner? No 01/10/2023 Within the last year, have y ou been raped or forced to have any kind of sexual activity by your partner or ex-partner? No 01/10/2023 Social Connection and Isolat ion Panel [NHANES] Answer Date Recorded In a typical week, how many times do you talk on the phone with family, friends, or neighbors? More than three times a week 01/10/2023 How often do you get togethe r with friends or relatives? Once a week 01/10/2023 How often do you attend chur ch or restoration services? Never 01/10/2023 Do you belong to any clubs o r organizations such as voodoo groups, unions, fraternal or athletic groups, or school groups? No 01/10/2023 How often do you attend meet ings of the clubs or organizations you belong to? Patient declined 01/10/2023 Are you , , di vorced, , never , or living with a partner? 01/10/2023 AUDIT-C Answer Date Recorded Q1: How often do you have a drink containing alc ohol? Never 01/10/2023 Average Number of Drinks Not on file Frequency of Binge Drinking Not on file 12/2022 Overall Financial Resource Strain (CARDIA) Answe r Date Recorded How hard is it for you to pa y for the very basics like food, housing, medical care, and heating? Not very hard 01/10/2023 PHQ-2 Answer Date Recorded PHQ-2 Score 2 10/11/2023 [facility] Occupat ional Health - Occupational Stress Questionnaire Answer Date Recorded Do you feel stress - tense, restless, nervous, or anxious, or unable to sleep at night because your mind is troubled all the time - these days? Very much 01/10/2023 Exercise Vital Sign Answer Date Recorde d On average, how many days pe r week do you engage in moderate to strenuous exercise (like a brisk walk)? 0 days 01/10/2023 On average, how many minutes do you engage in exercise at this level? 0 min 01/10/2023 Hunger Vital Sign Answer Date Recorded Within the past 12 months, y ou worried that your food would run out before you got the money to buy more. Never true 01/11/20 23 Within the past 12 months, t he food you bought just didn't last and you didn't have money to get more. Never true 01/10/2023 PRAPARE - Transportation Answer Date Re corded In the past 12 months, has l ack of transportation kept you from medical appointments or from getting medications? No 12/2022 In the past 12 months, has l ack of transportation kept you from meetings, work, or from getting things needed for daily living? No 01/10/2023 Housing Stability Vital Sign Answer Adolph e Recorded In the last 12 months, was t here a time when you were not able to pay the mortgage or rent on time? No 01/10/2023 In the last 12 months, how many places have you lived? 1 01/10/2023 In the last 12 months, was t here a time when you did not have a steady place to sleep or slept in a care home (including now)? No 01/10/2023 Depression Answer Date Recor ded PHQ-9 Total Score (max 27) 8 10/11 Nutrition Answer Date Recorded Nutrition: EVOO Fat Source Yes 01/10 On average, how many serving s of fruits and vegetables do you eat per day (serving size is equal to 1 cup or approximately the size of a tennis ball)? 0-1 01/10/2023 Dental Answer Date Recorded Dental: Regular Dentist Yes 01/11/20 Employment Answer Date Recorded Employment status Employed and actively working without restrictions 01/10/2023 Education Answer Date Recorded What is the highest level of school you have completed or the highest degree you have received? Bachelor's degree (e.g., BA, AB, BS) 01/10/2023 Sex and Gender Information Value Date Recorded Sex Assigned at Female 01/10/2023 7:49 AM SUPERVISOR [employer] Gender Identity Female 01/10/2023 7:49 AM SUPERVISOR [employer] Sexual Orientation Straight 01/10/2023 7: 49 AM SUPERVISOR [employer] Last Filed Vital Signs Vital Sign Reading Time Taken Comments Blood Pressure 126/85 02/14/2023 1:04 PM CDT Pulse 58 02/14/2023 1:04 PM CDT Temperature - - Respiratory Rate - - Oxygen Saturation - - Inhaled Oxygen Concentration - - Weight 143 kg (316 lb 5.8 oz) 02/14/2023 1:04 PM CDT Height 169.5 cm (5' 6.73) 09/09/2023 10:33 AM C DT Body Mass Index 49.95 02/14/2023 1:04 PM CDT Plan of Treatment Upcoming Encounters Date Type Department Care Team (Late st Contact Info) Description 06/02/2024 9:00 AM CDT Telemedicine Department of Nutrition and Diabetes Education in [place], [place] [address] [place] [phone] Ifeoma Rodriguez M.D. [address] [place] [phone] Jenny Brandt, RDN, LD [address] [place] [phone] Health Maintenance Due Date Last Done Comments Hepatitis C Screening 1982 Lipid (Cholesterol) Screening 1982 Mammogram 1982 Hepatitis B Vaccines (1 of 3 - 19+ 3-dose series) 2001 DTaP,Tdap,and Td Vaccines (3 - Td or Tdap) 07/17/2023 07/17/2013, 03/04/2009 Cervical Cancer Screening 11/16/20232020 (Performed elsewhere) Depression Monitoring (PHQ-9) 02/10/2024 10/11/2023 Office Visit for Blood Pressure Check / Re-check 02/15/2024 02/14/2023 HPV Vaccines Completed 09/16/2009, 04/2009, 05/10/2009, Additional history exists Influenza Vaccine Completed 08/26/2023, , 08/11/2021, Additional history exists COVID-19 Vaccine Completed 09/27/2023, , 09/20/2021, Additional history exists Pneumococcal vaccine (0-64 years) Aged Out No longer eligible based on patient's age to complete this topic Care Teams Family Mediator Relationship Specialty Start Date End Date Elsewhere, Pcp PCP - General Internal Medicine 01/09/23
--- OUTSIDE RECORDS SUMMARY | 2024-04-14 15:12 | XMS_ITS ---
Author Organization [facility] Address [address] [place] [address] Care Team Providers Care Delivery Sales Worker Name Role Phone Unavailable Unavailable Unavailable Surgery Details Not on file Complications Check Surgery Details section. Procedure Estimated Blood Loss Check Surgery Details section. Procedure Findings Check Surgery Details section. Procedure Specimens Taken Check Surgery Details section.
--- OUTSIDE RECORDS SUMMARY | 2024-04-14 15:12 | XMS_ITS | Referral Summary ---
Author Organization [facility] Address [address] [place] [address] Care Team Providers Care Fireworks Inspector Name Role Phone Elsewhere, Pcp Primary Care Provider Unavailabl e Source Comments Patient records contain information from all sites at [facility]. For routine questions regarding patient records, call [phone] during business hours, M-F 8:00 AM - 5:00 PM Central Time. Record requests for emergency care only can be directed to [phone] at any time.[facility] Allergies Active Allergy Reactions Criticality Noted Date [...] quad (FLUZONE/FLUARIX) (6 months and older)(PF) 08/11/2021,09/19/2020,08/24/2019,2017,08/21/2017,08/17/2015,08/31/2009 Social History Tobacco Use Types Packs/Day Years [...] week 01/10/2023 How often do you attend [facility] or [facility] services? Never 01/10/2023 Do you belong to any clubs o r organizations such as yazidi groups, unions, fraternal or athletic groups, or [...] Average Number of Drinks Not on file 023 Frequency of Binge Drinking Not on file 12/2022 Overall Financial Resource Strain (CARDIA) Answe r Date Recorded How hard is it for you to pa y for the very basics like food, housing, medical care, and heating? Not very hard 01/10/2023 PHQ-2 Answer Date Recorded PHQ-2 Score 2 10/11/2023 [facility] - Occupational Stress Questionnaire [...] place to sleep or slept in a senior care (including now)? No 01/10/2023 Depression Answer Date [...] Sex Assigned at Female 01/10/2023 7:49 AM SCRAP BREAKER Gender Identity Female 01/10/2023 7:49 AM SCRAP BREAKER Sexual Orientation Straight 01/10/2023 7: 49 AM SCRAP BREAKER Last Filed Vital Signs Vital Sign Reading [...] Department of Nutrition and Diabetes Education in [place], [place] [address] [place] [phone] Ifeoma Rodriguez M.D. [address] [place] [phone] Jenny Brandt RDN, LD [address] [place] [phone] Care Teams Fireworks Inspector Relationship Specialty Start Date End Date Elsewhere, Pcp PCP - General Internal Medicine 01/09/23
--- OUTSIDE RECORDS SUMMARY | 2024-04-14 15:12 | XMS_ITS | Clinical Summary ---
Author Organization [facility] Address [place], [place] [address] Care Team Providers Care Guide Travel Name Role Phone Pcp, No Primary Care Provider Unavailabl e Allergies Active Allergy Reactions Criticality Noted Date Comments Erythromycin Hives 12/16/2007 Medications Medication Sig Dispensed Refills Start Date End Date Status LORazepam (ATIVAN) 0.5 mg tabIndications:Anx iety state Take 1 Tablet (0.5 mg) by mouth every 6 hours if needed for Anxiety. 30 Tablet 07/24/2021 Active tirzepatide (Mounjaro) 2.5 mg/0.5 mL pen Inject 0.5 mL (2.5 mg) subcutaneous once weekly. 2 mL 11/19/2023 Active Active Problems Problem Noted Date Diagnosed Date Open wound(s) (multiple) of unspecified site(s), without mention of complication 10/03/2012 Anxiety state, unspecified 05/18/2009 Plantar fascial fibromatosis 12/16/2007 Immunizations Name Administration Dates Next Due Human Papilloma Virus Vaccine 09/16/2009, 009,03/04/2009 Influenza A (H1N1), Live Intranasal 08/31/2009 Influenza Intradermal PF 18-64 yrs 08/13/2016 Influenza, IIV3 (Age 6-35 mos) 3,08/06/2012,08/13/2011, 010 Influenza, IIV3 (Age >=3 years) 09/08/2014 Influenza, IIV4 08/21/2017,08/17/2015 Tdap 07/17/2013,03/04/2009 Social History Tobacco Use Types Packs/Day Years Used Date Smoking Tobacco: Never Smokeless Tobacco: Never Tobacco Cessation:Counseling Given: Yes Alcohol Use Standard Drinks/Week Comments No 0 (1 standard drink = 0.6 oz pur e alcohol) PHQ-2 Answer Date Recorded PHQ-2 TOTAL SCORE 4 07/24/2021 Social Connections Answer Date Recorded Frequency of Communication with Friends and Fami ly Not on file 11/11/2021 Financial Resource Strain Answer Date R ecorded Difficulty of Paying Living Expenses Not on file 11/11/2021 Difficulty of Paying Living Expenses Not on file 11/11/2021 Sex and Gender Information Value Date Recorded Sex Assigned at Not on file Gender Identity Not on file Sexual Orientation Not on file Obstetrics History Para Term AB IAB SAB Ectopic Multiple Livin g Live Births 1 11 11 Date Outcome GA Total Labor Labor/2nd/3rd Weight Sex Delivery Anes PTL Ai A1 A5 Name Cl in Term Last Filed Vital Signs Vital Sign Reading Time Taken Comments Blood Pressure 139/83 12/25/2018 5:28 PM [employer] BPM DEVELOPER Pulse 84 12/25/2018 5:28 PM [employer]PM DEVELOPER Temperature 36.6 ??C (97.9 ??F) 12/25/2018 5:28 PM CS T Respiratory Rate 12 05/25/2017 11:53 AM CDT Oxygen Saturation 95% 12/25/2018 5:28 PM [employer] BPM DEVELOPER Inhaled Oxygen Concentration - - Weight 139.7 kg (308 lb) 12/25/2018 5:28 PM [employer] BPM DEVELOPER Height 169.6 cm (5' 6.77) 12/25/2018 5:28 PM CS T Body Mass Index 48.57 12/25/2018 5:28 PM [employer] BPM DEVELOPER Plan of Treatment Health Maintenance Due Date Last Done Comments HIV for age 15-65 1997 Hepatitis C screening for age 18-79 2000 BMI (ht and wt on same day) for age 18+ 12/25/2019 12/25/2018, 12/12/2018, 05/20/2018, Additional history exists Depression screening for age 12+ 07/24/2022 07/24/2021, 12/12/2018, 12/12/2018 COVID-19 vaccine series ( season) 2023 07/25/2022, 09/20/2021, 03/07/2021, Additional history exists Tetanus booster 07/17/2023 07/17/2013, 04/2013 (Completed outside of [facility]), 03/04/2009 Influenza for age 9-49 07/12/2024 7, 08/17/2015, 09/08/2014, Additional history exists Pap test for age 21-65 09/18/2024 , 09/18/2021, 12/08/2013, Additional history exists Tdap Completed 07/17/2013, 04/2013 (Completed outside of [facility]), 03/04/2009 Pneumococcal series for age 6-64 Aged Out No longer eligible based on patient's age to complete this topic Procedures Procedure Name Priority Date/Time Associated Diagnosis Comments HPV THIN PREP Routine 09/18/2021 3:15 PM [employer] BPM DEVELOPER from Last 3 Months or Most Recently Relevant to Health Maintenance Results * HPV HIGH RISK (09/18/2021 3:15 PM [employer] BPM DEVELOPER) TYPE 16 Negative Negative 09/21/2021 2:56 PM [employer] BPM DEVELOPER [facility] TYPE 18 Negative Negative 09/21/2021 2:56 PM IBM BPM DEVELOPER [facility] OTHER HIGH RISK TYPES Negative Negative 09/21/2021 2:56 PM [employer] BPM DEVELOPER [facility] Other (Cervical) 09/18/2021 3:15 PM [employer] BPM DEVELOPER 09/19/2021 5:47 PM [employer] BPM DEVELOPER Narrative [facility] - 09/21/2021 2:56 PM [employer] BPM DEVELOPER HPV types 16, 18, 31, 33, 35, 39, 45, 51, 52, 56, 58, 59, 66 and 68 DNA were undetectable or below the pre-set threshold. Methodology: Praneeth Isrrael 4800 HPV Test Denisse Villeda NP MICROBIOLOGY [facility] [address] [place] [address], from Last 3 Months or Most Recently Relevant to Health Maintenance Advance Directives Documents on File Type Date Recorded Patient Radiation Oncology Therapist Expl anation Healthcare Directive 03/20/2017 4:35 PM 03/14/2017 Care Teams Guide Travel Relationship Specialty Start Date End Date Pcp, No . PCP - General 12/12/18
--- NOTE | 2024-04-14 15:20 | CRLHL7_ITS ---
For Patients: As a result of the Century Cures Act, medical imaging exams and procedure reports are released immediately into your electronic medical record. You may view this report before your referring provider. If you have questions, please contact your health care provider. BILATERAL SCREENING MAMMOGRAM WITH COMPUTER-AIDED DETECTION AND TOMOSYNTHESIS TECHNIQUE: CC and MLO views were obtained. These mammographic images have been obtained using full-field digital technique. These mammographic images were interpreted with the benefit of computer-aided detection. Breast Tomosynthesis was used in this interpretation. COMPARISON FILM: 11/27/22. FINDINGS: There are scattered areas of fibroglandular density IMPRESSION: There is no radiographic evidence for malignancy. ASSESSMENT: BI-RADS Category 1: Negative RECOMMENDATION: Routine screening mammogram in 1 year. A lay language report of this examination will be provided to the patient. Erich David M.D. Diagnostic Radiologist [email or web address] Transcribed: 2:48 [email or web address] arce/Dictated by: Erich David MD @ 04/17/2024 1:07:00 PM (Electronically Signed)
== END 2024-04-14 15:11 | disposition home or self-care (01) ==
LOC: MAMMO 15:10
PROVIDERS: PCP Internal Medicine; Visit Provider Internal Medicine
DX: Z12.31 Encounter for screening mammogram for malignant neoplasm of breast (principal)
CPT/HCPCS: 77063; 77067

== ENCOUNTER 2025-08-12 15:26 | Outpatient (CLI) | payer OTHER, SELFPAY | END 2025-08-12 15:27 | disposition home or self-care (01) | PROVIDERS: PCP Internal Medicine; Visit Provider Internal Medicine | DX: G57.93 Unspecified mononeuropathy of bilateral lower limbs (principal) | CPT/HCPCS: 80053; 82607; 84443 ==

== ENCOUNTER 2025-09-23 14:14 | Outpatient (CLI) | payer OTHER, SELFPAY ==
--- NOTE | 2025-09-23 14:30 | CRLHL7_ITS ---
For Patients: As a result of the 21st Century Cures Act, medical imaging exams and procedure reports are released immediately into your electronic medical record. You may view this report before your referring provider. If you have questions, please contact your health care provider. CLINICAL INDICATION: Left ankle pain. COMPARISON IMAGING STUDIES: None. TECHNICAL: Non-contrast MR of the left ankle. Axial, sagittal and coronal T1, PD, PDFS and STIR images. 1.5 [place] MR scanner. FINDINGS: OSSEOUS STRUCTURES: Mild bone marrow edema within the medial and lateral malleoli. Mild bone edema within the calcaneus. There is no acute fracture. No avascular necrosis. JOINT SPACES: Mild ankle joint marginal osteophyte formation. No ankle joint effusion or joint body. On coronal PD fat-sat image number 12 series 6, there is a tiny focus of subchondral bone marrow edema underlying the lateral talar dome which may relate to overlying grade 4 cartilage fissuring. Subtalar joint spaces are maintained. Mild talonavicular joint degenerative changes. There is a small calcaneocuboid joint effusion as noted on axial PD fat-sat image number 23 of series 4 where there is distention of the lateral recess. Joint spaces within the visualized midfoot and at the midfoot-forefoot junction are maintained. LIGAMENTS: Syndesmotic Ligaments: The anterior and posterior syndesmotic ligaments are intact. Lateral Ligaments: The anterior talofibular ligament is intact. There is irregularity of the calcaneofibular ligament which reflects sequelae of prior sprain or ligament degeneration. The posterior talofibular ligament is intact. Medial Ligaments: Intact. Spring Ligaments: Degeneration of the superior medial component of the calcaneonavicular spring ligament complex. TENDONS: Flexor Tendons: The posterior tibial tendon is abnormal with tendinosis and partial tearing of the medial half of the tendon over an approximately 3 centimeter longitudinal extent of the tendon. This is noted on axial PD fat-sat image number 14 of series 4. Increased fluid within the posterior tibial tendon sheath. The flexor digitorum longus and flexor hallucis longus tendons are intact. Extensor Tendons: Intact. Achilles Tendon: Moderate Achilles tendinosis. Peroneal Tendons: Mild tendinosis of the peroneus longus tendon. Peroneus brevis tendon is intact. TARSAL TUNNEL: No mass or fluid collection within the tarsal tunnel. 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 PLANTAR SOFT TISSUES: Chronic thickening of the proximal central band of the plantar fascia. No plantar fascial tear. Mild atrophy of the abductor digiti minimi muscle. OTHER FINDINGS: Extensive subcutaneous edema. IMPRESSION: 1. Posterior tibial tendinosis with an approximately 3 centimeter longitudinal extent area of partial tearing involving the inferior half of the tendon. Increased fluid within its tendon sheath. Degeneration of the superior medial component of the calcaneonavicular spring ligament. 2. Moderate Achilles tendinosis. 3. Mild peroneus longus tendinosis. 4. 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 5. Mild ankle joint degenerative changes. 6. Chronic thickening of the central band of plantar fascia. 7. Other findings as detailed above. Dictated by Hamilton Paulson MD @ 09/24/2025 11:40:49 AM (Electronically Signed)
== END 2025-09-23 14:15 | disposition home or self-care (01) ==
PROVIDERS: PCP Internal Medicine; Visit Provider Internal Medicine
DX: M25.572 Pain in left ankle and joints of left foot (principal); S96.812A Strain of other specified muscles and tendons at ankle and foot level, left foot, initial encounter; M76.62 Achilles tendinitis, left leg; M19.072 Primary osteoarthritis, left ankle and foot
CPT/HCPCS: 73721